=== PATIENT | male | born 1955 | race Caucasian/White ===

== ENCOUNTER 2020-06-21 07:37 | Emergency (ER) | payer MEDICARE, OTHER, SELFPAY ==
[2020-06-21 07:40] VITALS: BP 141/85; PULSE 69; RESP 18; TEMP 36.7; O2SAT 99
[2020-06-21 07:58] LABS: Add Urine Microscopic? NO; Appearance Urine Clear (Clear); Bacteria Urine Trace /hpf; Bilirubin Urine Negative (Negative); Blood Urine Negative (Negative); Color Urine Straw (Yellow); Glucose Urine UA Negative (Negative); Ketones Urine Negative (Negative); Leukocyte Esterase Ur Negative LEU/UL (Negative); Mucus Urine Rare /lpf; Nitrate Urine Negative (Negative); Protein Urine Negative (Negative); Specific Grav Ur 1.012 (1.001-1.035); Urobilinogen Urine Negative mg/dL (<2.0); WBC Urine 0-3 /hpf
--- NOTE | 2020-06-21 08:21 | ED.MALEGU ---
HPI - Male Genitourinary General Chief complaint: Urogenital-Male Stated complaint: diff urinating Time Seen by Provider: 06/21/20 08:01 History of Present Illness HPI Narrative: Patient is a 65-year-old male who presents ER with urinary retention. Has been unable to fully void since about midnight. He takes Flomax twice a day. No fevers or chills or sweats. No dysuria. Has had this previously. Has not started any new medications. Patient had some mild lower abdominal discomfort. Related Data Home Medications Medication Instructions Recorded Confirmed aspirin 81 mg tablet,delayed 81 mg PO DAILY 01/28/20 release latanoprost 0.005 % eye drops 1 drop LEFTEYE QPM ml 01/28/20 qzyuhquc-mucypqaqv-olhpkldd 3.5 1 drop RIGHTEYE .at bedtime ml 01/28/20 mg/mL-10,000 unit/mL-0.1% eye drops tamsulosin 0.4 mg capsule mg PO 01/28/20 01/28/20 timolol maleate 0.5 % eye drops 1 drop LEFTEYE .in the morning ml 01/28/20 Allergies Allergy/AdvReac Type Severity Reaction Status Date / Time No Known Allergies Allergy Verified 06/21/20 07:44 Review of Systems Gastrointestinal: Gastrointestinal: Reports abdominal pain, Denies nausea and Denies vomiting Genitourinary: Genitourinary: Denies hematuria, Reports oliguria and Denies dysuria PMFSH Past Medical History Medical History (Updated 06/21/20 @ 08:24 by Jairo Colby MD) BPH w urinary obs/LUTS Hypertensive heart disease without heart failure Mixed hyperlipidemia Restless legs syndrome Family History Family History (Updated 10/19/18 @ 14:24 by DOCTOR UNKNOWN) Other Family history of coronary artery disease Social History Social History Smoking status: Never smoker Second hand tobacco smoke exposure: No Alcohol intake: never Exam Narrative: Exam Narrative: GENERAL: Well-appearing, well-nourished, and in no acute distress. HEAD: Normocephalic, atraumatic. ABDOMEN: Soft, nontender, nondistended. EXTREMITIES: Normal range of motion. No edema. NEURO: Alert and oriented x3. PSYCH: Normal mood and affect. Course Course Emergency Course: Garza placed by nursing staff. 400 mL has been drained. Discharge with leg bag. Urine clean. Vital Signs Vital signs: Vital Signs Temperature 98.1 F 06/21/20 07:40 Pulse Rate 69 06/21/20 07:40 Respiratory Rate 18 06/21/20 07:40 Blood Pressure 141/85 H 06/21/20 07:40 Pulse Oximetry 99 06/21/20 07:40 Temperature 98.1 F 06/21/20 07:40 Pulse Rate 69 06/21/20 07:40 Respiratory Rate 18 06/21/20 07:40 Blood Pressure 141/85 H 06/21/20 07:40 Pulse Oximetry 99 06/21/20 07:40 MDM - Male Genitourinary Lab Data Labs: Lab Results 06/21/20 Range/Units 07:48 Urine Color Straw (Yellow) Urine Appearance Clear (Clear) Urine pH 6.0 (5.0-9.0) Ur Specific [place] 1.012 (1.001-1.035) Urine Protein Negative (Negative) mg/dL Urine Glucose (UA) Negative (Negative) mg/dL Urine Ketones Negative (Negative) mg/dL Ur Blood (Man) Negative (Negative) Urine Nitrate Negative (Negative) Urine Bilirubin Negative (Negative) Urine Urobilinogen Negative (<2.0) mg/dL Leukocyte Esterase Rfl Negative (Negative) USHA/UL Urine WBC 0-3 /hpf Urine Bacteria Trace /hpf Urine Mucus Rare /lpf Discharge Plan Discharge Clinical Impression: Acute retention of urine Patient Disposition: Home, Self-Care Condition: Stable Instructions: Garza Catheter Placement and Care (ED) Additional Instructions: Contact your urologist and schedule a follow-up appointment to have your Garza removed. Return to the ER if you develop fever over 100.4 ?F, you have lower abdominal pain with a poorly draining catheter, or you have other concerns. Prescriptions: No Action timolol maleate 0.5 % drops 1 drop LEFTEYE .in the morning RF: 0 latanoprost 0.005 % drops 1 drop LEFTEYE QPM RF: 0 neomycin-polymyxin B-dexameth 3.5mg/mL-10,000 unit/mL-
[2020-06-21 08:49] VITALS: BP 161/91; PULSE 84; RESP 13; O2SAT 98
== END 2020-06-21 08:51 | disposition home or self-care (01) ==
LOC: ANHED 08:26
PROVIDERS: Emergency Provider Emergency Medicine; PCP Internal Medicine; Referring Provider Urology
DX: R33.9 Retention of urine, unspecified (principal); I11.0 Hypertensive heart disease with heart failure; I50.9 Heart failure, unspecified; E78.5 Hyperlipidemia, unspecified; G25.81 Restless legs syndrome; N40.1 Benign prostatic hyperplasia with lower urinary tract symptoms; N13.8 Other obstructive and reflux uropathy; Z79.01 Long term (current) use of anticoagulants
CPT/HCPCS: 51702; 81003; 99283

== ENCOUNTER 2020-06-28 03:14 | Emergency (ER) | payer MEDICARE, OTHER, SELFPAY ==
[2020-06-28 03:22] VITALS: BP 150/84; PULSE 66; RESP 16; TEMP 36.5; O2SAT 100
--- NOTE | 2020-06-28 03:48 | ED.ABDPAIN ---
HPI - Abdominal Pain General Chief Complaint: Urogenital-Male Stated Complaint: unable to urinate Time Seen by Provider: 06/28/20 03:33 Source: patient Mode of arrival: ambulatory Limitations: no limitations History of Present Illness HPI narrative: This patient is a 65 year old male with history urinary retention, BPH who presents for evaluation of inability to urinate. Patient was evaluated 1 week ago for urinary retention, and he had a casper catheter placed in the ED. He was discharged home and he states his catheter was removed on Monday. He noticed yesterday evening that his urine stream was slowing down. He developed lower abdominal pain at midnight, and he states he was only able to urinate dribbles. He denies nausea, vomiting or fever. Nursing staff performed a bladder scan and placed a casper catheter before my evaluation. Patient has 600 ml of clear urine output after catheter placement. He states his abdominal pain has resolved. Related Data Home Medications Medication Instructions Recorded Confirmed aspirin 81 mg tablet,delayed 81 mg PO DAILY 01/28/20 release latanoprost 0.005 % eye drops 1 drop LEFTEYE QPM ml 01/28/20 urzskrwi-azwokmoeb-jvzqxxyk 3.5 1 drop RIGHTEYE .at bedtime ml 01/28/20 mg/mL-10,000 unit/mL-0.1% eye drops tamsulosin 0.4 mg capsule mg PO 01/28/20 01/28/20 timolol maleate 0.5 % eye drops 1 drop LEFTEYE .in the morning ml 01/28/20 Allergies Allergy/AdvReac Type Severity Reaction Status Date / Time No Known Allergies Allergy Verified 06/21/20 07:44 Review of Systems Review of Systems: All systems reviewed & are unremarkable except as noted in HPI and below Constitutional: Constitutional: Denies chills and Denies fever(s) Respiratory: Respiratory: Denies cough and Denies dyspnea Gastrointestinal: Gastrointestinal: Reports abdominal pain, Denies nausea and Denies vomiting Genitourinary: Genitourinary: Denies hematuria, Reports oliguria and Denies dysuria [facility] Past Medical History Medical History (Updated 06/28/20 @ 04:13 by Sarah Ang MD) BPH w urinary obs/LUTS Hypertensive heart disease without heart failure Mixed hyperlipidemia Restless legs syndrome Surgical History Surgical History (Updated 06/28/20 @ 03:52 by Sarah Ang MD) Hx of appendectomy Family History Family History (Updated 10/19/18 @ 14:24 by DOCTOR UNKNOWN) Other Family history of coronary artery disease Social History Social History Smoking status: Never smoker Second hand tobacco smoke exposure: No Alcohol intake: never Exam Narrative: Exam Narrative: GENERAL: Well-appearing, well-nourished, and in no acute distress. HEAD: Normocephalic, atraumatic EYES: PERRLA and EOMI, conjunctiva clear without discharge THROAT:Mucous membranes moist, Oropharynx normal without erythema, exudate, peritonsillar swelling or fluctuance NECK: Supple, without lymphadenopathy or mass RESPIRATORY: No respiratory distress, Airway patent, Respirations non-labored, Clear to auscultation without rales, rhonchi or wheeze HEART: Regular rate and rhythm. No murmur heard. Normal peripheral pulses. ABDOMEN: Soft, nontender, nondistended, normal active bowel sounds. No masses. No rebound or guarding, No organomegaly. EXTREMITIES: No edema, normal strength with full range of motion. SKIN: Warm, dry, normal color without rash NEURO: Alert and oriented x3. CN 2-12 grossly intact. No focal deficits. PSYCH: Normal mood and affect. Course Vital Signs Vital signs: Vital Signs Temperature 97.7 F 06/28/20 03:22 Pulse Rate 66 06/28/20 03:22 Respiratory Rate 16 06/28/20 03:22 Blood Pressure 150/84 H 06/28/20 03:22 Pulse Oximetry 100 06/28/20 03:22 Temperature 97.7 F 06/28/20 03:22 Pulse Rate 68 06/28/20 04:37 Respiratory Rate 19 06/28/20 04:37 Blood Pressure 149/75 H 06/28/20 04:37 Pulse Oximetry 99 06/28/20 04:37 MDM - Abdominal [place]
[2020-06-28 04:10] LABS: Add Urine Microscopic? YES; Appearance Urine Clear (Clear); Bilirubin Urine Negative (Negative); Blood Urine 1+ (Negative); Color Urine Straw (Yellow); Glucose Urine UA Negative (Negative); Ketones Urine Negative (Negative); Leukocyte Esterase Ur Negative LEU/UL (Negative); Nitrate Urine Negative (Negative); Protein Urine Negative (Negative); RBC Urine 0-2 /hpf (0-2); Specific Grav Ur 1.008 (1.001-1.035); Urobilinogen Urine Negative mg/dL (<2.0)
[2020-06-28 04:37] VITALS: BP 149/75; PULSE 68; RESP 19; O2SAT 99
== END 2020-06-28 04:48 | disposition home or self-care (01) ==
LOC: ANHED 04:21
PROVIDERS: Emergency Provider General Practice; PCP Internal Medicine
DX: N40.1 Benign prostatic hyperplasia with lower urinary tract symptoms (principal); R33.8 Other retention of urine; I11.9 Hypertensive heart disease without heart failure; E78.2 Mixed hyperlipidemia; G25.81 Restless legs syndrome; Z79.82 Long term (current) use of aspirin
CPT/HCPCS: 51702; 81001; 99283

== ENCOUNTER 2020-10-06 08:37 | Outpatient (CLI) | payer MEDICARE, OTHER, SELFPAY ==
--- NOTE | 2020-10-06 08:40 | ECG_ITS ---
Measurements Intervals [place] Rate: 59 P: 37 GA: 199 QRS: 27 QRSD: 92 T: 38 QT: 386 QTc: 383 Interpretive Statements SINUS BRADYCARDIA EARLY PRECORDIAL R/S TRANSITION BASELINE WANDER- V6 BORDERLINE ECG Electronically Signed On 10-06-2020 13:25:38 [employer] by Arun Henderson D.O.
[2020-10-06 09:37] LABS: INR 0.9; Prothrombin Time 12.6 Seconds (11.1-14.7)
[2020-10-06 09:38] LABS: Partial Thromboplastin Time 27.3 SECONDS (22.3-36.8)
== END 2020-10-06 08:38 | disposition home or self-care (01) ==
PROVIDERS: PCP Internal Medicine; Visit Provider Urology
DX: Z01.818 Encounter for other preprocedural examination (principal); E78.2 Mixed hyperlipidemia; N40.1 Benign prostatic hyperplasia with lower urinary tract symptoms; N13.8 Other obstructive and reflux uropathy
CPT/HCPCS: 36415; 85610; 85730; 87086; 93005

== ENCOUNTER 2020-10-10 02:01 | Outpatient (CLI) | payer MEDICARE, OTHER, SELFPAY ==
[2020-10-10 20:08] LABS: SARS-CoV-2 RNA PCR Negative
== END 2020-10-10 02:02 | disposition home or self-care (01) ==
LOC: ANHCOVIDDT 02:01
PROVIDERS: PCP Internal Medicine; Visit Provider Urology
DX: Z01.812 Encounter for preprocedural laboratory examination (principal); Z20.822 Contact with and (suspected) exposure to COVID-19
CPT/HCPCS: C9803; U0003

== ENCOUNTER 2020-10-13 01:58 | Day surgery (SDC) | payer MEDICARE, OTHER, SELFPAY ==
[2020-09-30 12:55] VITALS: BMI 27.1
--- NOTE | 2020-10-12 10:28 | WPDANESEPPF ---
Anes - Initial Pre Proc Eval Procedure: Operation Date: 10/13/20 08:30 Proposed Procedures p Trans Urethral Resection Prostate - Dani Trevino MD Date/Time: 10/12/20 10:28 Surgeon: Dani Trevino MD Pre Op Diagnosis: BPH Patient Data Age: 65 Gender: M Height: 1.83 m Weight: 90.72 kg Allergies Allergy/AdvReac Type Severity Reaction Status Date / Time No Known Allergies Allergy Verified 10/13/20 06:35 Home Medications Medication Instructions Recorded Confirmed Type aspirin 81 mg tablet,delayed 81 mg PO DAILY 01/28/20 10/13/20 History release latanoprost 0.005 % eye drops 1 drop LEFTEYE QPM ml 01/28/20 10/13/20 History bpjtrmgi-nxvnsifux-tfxjioef 3.5 1 drop RIGHTEYE .at bedtime ml 01/28/20 10/13/20 History mg/mL-10,000 unit/mL-0.1% eye drops tamsulosin 0.4 mg capsule 0.4 mg PO BID 01/28/20 10/13/20 History timolol maleate 0.5 % eye drops 1 drop LEFTEYE .in the morning ml 01/28/20 10/13/20 History finasteride 5 mg tablet 5 mg PO DAILY #90 tablet 06/23/20 10/13/20 Rx pramipexole 0.75 mg tablet 0.75 mg PO .QD #90 tablet 08/25/20 10/13/20 Rx testosterone 2 pump TOPICAL .COMPLEX 90 Days 08/26/20 10/13/20 Rx #450 gm clotrimazole-betamethasone 1 applic TOPICAL PRN PRN 09/30/20 09/30/20 History flaxseed oil 1,000 mg PO DAILY 09/30/20 10/13/20 History odmbs-ka7-kaq-nvq-oj1-xey-astx 1 cap PO DAILY 09/30/20 10/13/20 History [Krill Oil ([place] 3 and 6)] metoprolol succinate 50 mg PO HS 09/30/20 10/13/20 History xmrcfxej-ltd-MJ-lycopen-lutein 1 tablet PO DAILY 09/30/20 10/13/20 History [Centrum Silver Men] simvastatin 20 mg PO HS 09/30/20 10/13/20 History Patient hx anesthesia problems: none Family hx anesthesia problems: none PMFSH Past Medical History Medical History (Updated 10/12/20 @ 10:28 by Lonnie Elliott DO) BPH w urinary obs/LUTS Hypertensive heart disease without heart failure Liver mass, right lobe cyst Mixed hyperlipidemia Restless legs syndrome Surgical History Surgical History (Updated 06/28/20 @ 03:52 by Sarah Ang MD) Hx of appendectomy Family History Family History (Updated 10/19/18 @ 14:24 by DOCTOR UNKNOWN) Other Family history of coronary artery disease Social History Social History Smoking status: Never smoker Second hand tobacco smoke exposure: No Alcohol intake: never Drinks per week: 3 Living arrangements: with family Spiritual care concerns: No Anes - Eval Final PreProcedure Day of Procedure 10/12/20 10:28 Patient weight: overweight Heart: regular rate and rhythm Lungs: clear to auscultation and normal air movement Airway: Mallampati scale class II Neurological: alert and oriented Last oral intake: >/= 8 hours ASA classification: III Emergent: no Anesthetic plan: proceed Anesthesia type and monitoring: general LMA and standard monitoring Informed Consent: The patient's anesthetic plan and its attendant risks and benefits were discussed with the patient/family/POA. Questions were solicited and answers provided to the satisfaction of the patient/family/POA.
[2020-10-13] VITALS (14 sets, daily range): BP systolic 121–161; BP diastolic 67–86; PULSE 51–88; RESP 9–20; TEMP 35.9–36.5; O2SAT 97–100; BMI 26.2
[2020-10-13] MEDS: LACTATED RINGERS 1,000 ML 30 ML IV CONT ×2 (07:10→09:43)
--- NOTE | 2020-10-13 07:28 | WPDHPUPDATE1 ---
History and Physical Update Update Date/Time: 10/13/20 07:28 History and Physical has been reviewed, including an updated exam of the patient. There are NO changes in the patient's condition. Risks, benefits, and alternatives have been discussed and questions answered. Patient agrees to proceed with procedure.
[2020-10-13] MEDS: ceFAZolin 2 GM/D5W 50 ML 2 GM/50 ML BAG IVPB (08:35)
[2020-10-13] MEDS: LIDOCAINE HCL 2% GEL UROJET 10 ML PKG MUCOUS MEM (08:52)
--- NOTE | 2020-10-13 09:39 | P.OP_ITS ---
Procedure Note - Detailed Date of procedure: 10/13/20 Pre-op diagnosis: BPH Post-op diagnosis: same Procedure performed: Transurethral resection of prostate Description of procedure: Patient is taken to the operative suite and correctly identified. Once anesthesia was obtained he was placed in dorsal lithotomy position and prepped and draped usual sterile fashion. Twenty-four Danish resectoscope was inserted. There are no bladder tumors noted both ureteral orifices normal anatomic position. The prostate had some lateral lobe hypertrophy but most of it was a median lobe as well as some protrusion of the lateral lobes into the bladder. We went ahead and resected the lateral lobes from the bladder neck to the verumontanum. This was then circumferentially. The median lobe was also taken down. Chips were then sent for analysis. We used fulguration with the rollerball to get hemostasis. All trips were retrieved. 2% viscous lidocaine was then inserted into the urethra. Twenty- four Danish 3 way was placed with 20 cc in the balloon. This was connected to continuous bladder irrigation. Anesthesia: GLMA Surgeon: Dani Trevino MD Estimated blood loss (mL): 50 Drains: Yes Packing: No Pathology: yes Complications: No immediate complications Condition: stable Disposition: PACU
--- NOTE | 2020-10-13 11:09 | ADMGEN ---
This patient, Dave Spicer, was admitted to -. Patient/family oriented to hospital policies and general routines including ID bracelet, bed and alarms, visiting hours, pain management, procedures, bathroom and other care routines, personal items, smoking policy, room service/diet, and visiting hours. Information on how to activate the Rapid Response Team has been discussed. Patient/Family are encouraged to report perceived risks to care and to ask questions if they do not understand what they are told or what they should do.
[2020-10-13] MEDS: DEXTROSE 5%/LACTATED RINGERS 1,000 ML 125 ML IV CONT ×2 (12:00→12:23)
[2020-10-13] MEDS: HYOSCYAMINE SULFATE 0.125 MG TABLET SUBLINGUAL (12:23)
[2020-10-13] MEDS: DOCUSATE SODIUM 100 MG CAPSULE PO (18:05)
[2020-10-13] MEDS: SIMVASTATIN 20 MG TABLET PO (20:57)
[2020-10-13] MEDS: LATANOPROST 0.005% OP SOLN 2.5 ML BTL 1 DROP EACH EYE (20:57)
[2020-10-13] MEDS: NEOMYCIN/POLYMYXIN/DEXAMETH OP SUSP 5 ML BTL 1 DROP RIGHT EYE (20:57)
[2020-10-13] MEDS: METOPROLOL SUCCINATE EXT REL 50 MG TABCR PO (20:57)
[2020-10-13] MEDS: diphenhydrAMINE HCl CAP 25 MG CAPSULE PO (23:44)
[2020-10-14 01:14] VITALS: BP 116/64; PULSE 60; RESP 16; TEMP 36.3; O2SAT 97
[2020-10-14 05:33] VITALS: BP 125/67; PULSE 60; RESP 16; TEMP 36.4; O2SAT 97
[2020-10-14 05:52] LABS: Hematocrit 41.8 % (42.0-52.0)
[2020-10-14 06:19] LABS: Anion Gap 2 mmol/L (8-16); Blood Urea Nitrogen 19 mg/dL (9-20); Calcium 9.4 mg/dL (8.4-10.2); Carbon Dioxide 31 mmol/L (22-30); Chloride 105 mmol/L (98-107); Estimated CRCL calculation 70 ml/min; Estimated Glomerular Filt Rate > 60; Glucose 99 mg/dL (75-110); Sodium 138 mmol/L (137-145)
[2020-10-14] MEDS: CEPHALEXIN 500 MG CAPSULE PO ×2 (08:23→12:31)
[2020-10-14] MEDS: TIMOLOL MALEATE 0.5% OP SOLN 5 ML BOTTLE 1 DROP EACH EYE (08:23)
[2020-10-14] MEDS: DOCUSATE SODIUM 100 MG CAPSULE PO (08:23)
--- NOTE | 2020-10-14 08:58 | WPDANESPN ---
Anes - Prog Note Post-Op Date/Time: 10/14/20 08:58 Cardiovascular status: normal Respiratory status: normal Airway patency: baseline Mental status: baseline Post-Op hydration status: normal Vital Signs: Last Vital Signs Temp 36.4 C 10/14/20 05:33 Pulse 60 10/14/20 05:33 Resp 16 10/14/20 05:33 BP 125/67 10/14/20 05:33 Pulse Ox 97 10/14/20 05:33 Pain Score (VAS): 10/18 I/O: Intake & Output 10/13/20 10/14/20 10/14/20 23:59 07:59 15:59 Intake Total 840 300 240 Output Total 3350 Balance -2510 300 240 Laboratory Tests 10/14/20 05:32 10/14/20 05:32 10/14/20 10/14/20 05:32 05:32 Hgb 14.0 Hct 41.8 L Sodium 138 Potassium 4.0 Chloride 105 Carbon Dioxide 31 H Anion Gap 2 L BUN 19 Creatinine 1.00 Estim Creat Clear Calc 70 Estimated GFR > 60 Glucose 99 Calcium 9.4 Patient Feedback: Patient satisfied with anesthetic care.
--- NOTE | 2020-10-14 09:48 | WPDUROPN2 ---
Progress Note: A&P Assessment and Plan (1) BPH w urinary obs/LUTS: Code(s): N40.1 - Benign prostatic hyperplasia with lower urinary tract symptoms; N13.8 - Other obstructive and reflux uropathy Status: Acute Assessment and Plan: Encourage more activity, to ensure bleeding will not start with CBI off. Will re-assess this afternoon, if urine is clear with plan to discharge home with casper. If bloody, will restart CBI and keep overnight to re-assess tomorrow, will then need to wean CBI to off when clear. Creatinine is 1.00. Subjective Subjective Date/Time Seen: 10/14/20 09:48 POD #1 TURP Urine is clear on slow CBI, CBI was turned off during exam this morning. Patient is doing well, no c/o pain or bleeding. Review of Systems Respiratory: Respiratory: Reports no additional respiratory complaints Gastrointestinal: Gastrointestinal: Denies abdominal pain Genitourinary: Genitourinary: Denies hematuria and Denies flank pain Exam Resp: Effort & Inspection: normal respiratory effort Cardio: Rate: regular rate GI: GI Palp: No abdominal tenderness, Yes Soft to palpation and No Tenderness to palpation present (GI) : General: Yes no CVA tenderness Urinary Catheter: Urinary Catheter: patent and draining and urine clear Extrem: General: no edema Objective Data Vital Signs Vital Signs: Vital Signs - 24 hr 10/13/20 10:00 10/13/20 10:05 10/13/20 10:15 Temperature Pulse Rate 58 L 61 56 L Respiratory Rate 14 16 14 Blood Pressure 123/84 142/86 H Pulse Oximetry 100 99 10/13/20 10:30 10/13/20 10:45 10/13/20 11:00 Temperature Pulse Rate 59 L 58 L 88 Respiratory Rate 18 14 20 Blood Pressure 142/86 H 139/84 161/72 H Pulse Oximetry 98 99 97 10/13/20 11:25 10/13/20 11:50 10/13/20 15:48 Temperature 96.6 F L 96.7 F L 97.4 F L Pulse Rate 51 L 52 L 79 Respiratory Rate 18 18 20 Blood Pressure 140/67 145/81 H 125/72 Pulse Oximetry 100 100 99 10/13/20 20:00 10/13/20 20:57 10/13/20 22:14 Temperature 97.6 F Pulse Rate 74 74 73 Respiratory Rate 20 18 Blood Pressure 129/76 Pulse Oximetry 99 100 10/14/20 01:14 10/14/20 05:33 Temperature 97.4 F L 97.6 F Pulse Rate 60 60 Respiratory Rate 16 16 Blood Pressure 116/64 125/67 Pulse Oximetry 97 97 Intake/Output Intake/Output: Intake & Output 10/11/20 10/12/20 10/13/20 10/14/20 23:59 23:59 23:59 23:59 Intake Total 1620 540 Output Total 7350 Balance -5730 540 Meds/Results Medications: Active Medications Generic Name Dose Route Start Last Admin Trade Name Freq PRN Reason Stop Dose Admin Hydrocodone Bitart/Acetaminophen 1 tab 10/13/20 10:03 Hydrocodone/Acetaminophen (*Crx) 5-325 Mg Tablet PO Q4H PRN Pain Rated 1-6 Cephalexin HCl 500 mg 10/14/20 09:00 10/14/20 08:23 Cephalexin 500 Mg Capsule PO 500 mg QID ARGENIS Administration Docusate Sodium 100 mg 10/13/20 17:00 10/14/20 08:23 Docusate Sodium 100 Mg Capsule PO 100 mg BID ARGENIS Administration Hyoscyamine 0.125 mg 10/13/20 10:03 10/13/20 12:23 Hyoscyamine Sulfate 0.125 Mg Tablet SUBLINGUAL 0.125 mg Q6H PRN Administration Bladder Spasm Latanoprost 1 drop 10/13/20 21:00 10/13/20 20:57 Latanoprost 0.005% Op Soln 2.5 Ml Btl EACH EYE 1 drop HS ARGENIS Administration Metoprolol Succinate 50 mg 10/13/20 21:00 10/13/20 20:57 Metoprolol Succinate Ext Rel 50 Mg Tabcr PO 50 mg HS ARGENIS Administration Morphine Sulfate 2 mg 10/13/20 10:03 Morphine Sulfate (*Crx) 2 Mg/Ml Inj IV PUSH Q2H PRN Pain Rated 7-10 Naloxone HCl 0.1 mg 10/13/20 10:03 Naloxone Hcl 0.4 Mg/Ml Vial IV PUSH Q2M PRN Opiate Reversal Naloxone HCl 0.1 mg 10/13/20 11:05 Naloxone Hcl 0.4 Mg/Ml Vial IV PUSH Q2M PRN Opiate Reversal Neomycin/Polymyxin/Dexamethasone 1 drop 10/13/20 21:00 10/13/20 20:57 Neomycin/Polymyxin/Dexameth Op Susp 5 Ml Btl RIGHT EYE 1 drop HS ARGENIS Administratio
--- NOTE | 2020-10-14 10:44 | PC.NURSE ---
Urine in casper bag remains clear yellow with small periods of darker pink noted after walking in hallway. No dark blood noted. No clots noted.
[2020-10-14 11:48] VITALS: BP 136/68; PULSE 104; RESP 20; TEMP 36.2; O2SAT 100
--- NOTE | 2020-10-14 15:44 | PM.DS ---
DS: Admitting Diagnosis Admitting Diagnosis Admitting Diagnosis: BPH DS: Summary Hospital Course Hospital Course: POD #1 TURP Time Spent with Patient Time attestation: Pre-Op Diagnosis: BPH with LUTS Post -OP Diagnosis: BPH Patient underwent a TURP on 10/13/[address] Cuco Trevino and tolerated the procedure well. He was transferred to recovery in stable condition and to the floor for further observation overnight. He was on CBI overnight and into this morning, urine remained clear and CBI was turned off around 9am. After activity today with CBI off, urine has remained clear and no bleeding noted. He will be discharged home and should resume all home medications, excluding vitamins, ASA and NSAID's. They can be resumed on Monday. He will also go home with Levsin for bladder spasms, Ultram for pain and Bactrim to prevent infection. He can resume a diet as tolerated and activity no straining. He will follow up Monday10/16/2020 at 10am for casper removal. Exam Resp: Effort & Inspection: normal respiratory effort Cardio: Rate: regular rate GI: GI Palp: Yes Soft to palpation and No Tenderness to palpation present (GI) : General: Yes no CVA tenderness Urinary Catheter: Urinary Catheter: patent and draining, urine clear and urine dark Extrem: General: no edema DS: Data Data Completed and Pending Completed studies during hospitalization: Pending at discharge 10/13/20 09:31 Surgical [PTH] Routine Labs on day of discharge: Labs from last 24 hours 10/14/20 10/14/20 05:32 05:32 Hgb 14.0 Hct 41.8 L Sodium 138 Potassium 4.0 Chloride 105 Carbon Dioxide 31 H Anion Gap 2 L BUN 19 Creatinine 1.00 Estim Creat Clear Calc 70 Estimated GFR > 60 Glucose 99 Calcium 9.4 Discharge Plan Discharge Patient Disposition: Home, Self-Care Discharge Instructions: Ok to discharge home with casper catheter. Patient will follow up Monday10/16/2019 at 10am to have casper removed in the office. Call the office if you develop a fever of >102, heavy bleeding or clots. Patient Instructions: Continuous Bladder Irrigation (GEN), Transurethral Resection of Bladder Tumors (DC) Stand Alone Forms: Avoid NSAIDs Follow-up/Referrals: Dani Trevino MD [Physician] - Discharge Medications: New sulfamethoxazole-trimethoprim [Bactrim DS] 800-160 mg tablet 1 tablet PO DAILY Qty: 3 RF: 0 tramadol [Ultram] 50 mg tablet 50 mg PO Q6H PRN (Reason: pain) Qty: 10 RF: 0 hyoscyamine sulfate [Levsin/SL] 0.125 mg tablet, sublingual 0.125 mg sublingual QID Qty: 20 RF: 0 Continued timolol maleate 0.5 % drops 1 drop LEFTEYE .in the morning RF: 0 latanoprost 0.005 % drops 1 drop LEFTEYE QPM RF: 0 neomycin-polymyxin B-dexameth 3.5mg/mL-10,000 unit/mL-0.1 % drops,suspension 1 drop RIGHTEYE .at bedtime RF: 0 tamsulosin 0.4 mg capsule 0.4 mg PO BID RF: 0 metoprolol succinate 50 mg tablet extended release 24 hr 50 mg PO HS RF: 0 clotrimazole-betamethasone 1-0.05 % cream 1 applic TOPICAL PRN PRN (Reason: Itching) RF: 0 simvastatin 20 mg tablet 20 mg PO HS RF: 0 pramipexole 0.75 mg tablet 0.75 mg PO HS RF: 0 finasteride 5 mg tablet 5 mg PO DAILY Qty: 90 RF: 1 testosterone 12.5 mg/ 1.25 gram (1 %) gel in metered-dose pump 2 pump topical .COMPLEX 90 Days Qty: 450 RF: 1 Held aspirin [Adult Aspirin Regimen] 81 mg tablet,delayed release (DR/EC) 81 mg PO DAILY RF: 0 Hold Instructions: Resume on 10/19/20. flaxseed oil 1,000 mg Capsule 1,000 mg PO DAILY RF: 0 Hold Instructions: Resume on 10/19/20. Krill Oil ([place] 3 and 6) 1,500-165-67.5 mg Capsule 1 cap PO DAILY RF: 0 Hold Instructions: Resume on 10/19/20. Centrum Silver Men 300-600-300 mcg Tablet 1 tablet PO DAILY RF: 0 Hold Instructions: Resume on 10/19/20.
--- NOTE | 2020-10-14 16:00 | PC.NURSE ---
Orders to d/c CBI and place casper catheter to leg bag for discharge home. Patient has ambulated in hallway 5-6 times with pink urine - no clots. Patient has tolerated CBI being paused all day today. No c/o pain or discomfort. No issues with flow of urine in catheter today. Patient states he has had a leg bag and catheter at home previously and is familiar with how to care for the catheter and how to empty the bag. Reviewed catheter care with patient and how to switch from leg bag to larger gravity drainage bag at bedtime. Patient verbalized understanding of all instructions. Sent patient home with catheter plug, drainage bag and graduate for emptying leg bag and catheter.
== END 2020-10-14 16:20 | disposition home or self-care (01) ==
LOC: ANHSURGERY 06:23 → ANH2MED 11:16
PROVIDERS: PCP Internal Medicine; Visit Provider Urology
PROC: 0VT08ZZ Resection of Prostate, Via Natural or Artificial Opening Endoscopic (ICD-10-PCS; CPT 52601; principal; 2020-10-13 08:30)
DX: N40.1 Benign prostatic hyperplasia with lower urinary tract symptoms (principal); R33.8 Other retention of urine; I11.9 Hypertensive heart disease without heart failure; E78.2 Mixed hyperlipidemia; G25.81 Restless legs syndrome; K76.89 Other specified diseases of liver
CPT/HCPCS: 52601; 36415; 80048; 85014; 85018; 88305; A9270; J0690; J1100; J2405; J2704; J3010; J7120; J7121

== ENCOUNTER 2021-03-22 08:44 | Outpatient (CLI) | payer MEDICARE, OTHER, SELFPAY ==
--- NOTE | 2021-03-22 08:48 | EST_ITS ---
Patient Info Name: Dave Spicer Age: 66 years : 1955 Gender: Male Ht: 72 in Wt: 200 lbs BSA: 2.16 m2 HR: 51 bpm BP: 136 / 88 mmHg Heart Rhythm: Sinus Rhythm Exam Date: 03/22/2021 9:27 AM Exam Location: [facility] Patient Status: Outpatient Admit Date: 03/22/2021 Staff Ordering Physician: Tamica Ahuja DO Indian Blanket Weaver: Veronica Burnett RDCS Attending Provider: ARUN GLASER DO Exercise Technologist: Justina Delgado RDCS Exercise Physician: Arun Glaser DO Exam Type: CA stress echo Study Info Indications R07.9 - Chest pain, unspecified Treadmill exercise stress echocardiogram is performed. Summary 1. 1. Negative Ed exercise stress test for ischemic ST changes by ECG criteria. 2. 2. Good functional capacity, achieving 11 METs of workload. 3. 3. Appropriate HR response to exercise. 4. 4. Appropriate HR recovery at 1 minute post exercise. 5. 5. Hypertensive response to exercise. 6. 6. Negative stress echocardiogram for ischemia by wall motion analysis. 7. 7. Patient informed of the above results. Stress Echo Findings Left Ventricle Appropriate increase in LV endocardial thickening with systole. Appropriate augmentation of contractility with systole. No wall motion abnormality. Left Ventricle Normal LV systolic function, no wall motion abnormality. Protocol: Ed Stress ECG Details Stage: REST Duration (min): 0 min : 55 sec Speed (mph): 0.0 Grade (%): 0 HR (bpm): 53 SBP (mmHg): 136 DBP (mmHg): 88 METS: --- Stage: REST Duration (min): 14 min : 57 sec Speed (mph): 0.0 Grade (%): 0 HR (bpm): 53 SBP (mmHg): 136 DBP (mmHg): 88 METS: --- Stage: STAGE 1 Duration (min): 1 min : 0 sec Speed (mph): 1.7 Grade (%): 10 HR (bpm): 71 SBP (mmHg): 136 DBP (mmHg): 88 METS: --- Stage: STAGE 1 Duration (min): 2 min : 0 sec Speed (mph): 1.7 Grade (%): 10 HR (bpm): 75 SBP (mmHg): 136 DBP (mmHg): 88 METS: --- Stage: STAGE 1 Duration (min): 3 min : 0 sec Speed (mph): 1.7 Grade (%): 10 HR (bpm): 78 SBP (mmHg): 158 DBP (mmHg): 91 METS: --- Stage: STAGE 2 Duration (min): 1 min : 0 sec Speed (mph): 2.5 Grade (%): 12 HR (bpm): 87 SBP (mmHg): 158 DBP (mmHg): 91 METS: --- Stage: STAGE 2 Duration (min): 2 min : 0 sec Speed (mph): 2.5 Grade (%): 12 HR (bpm): 92 SBP (mmHg): 158 DBP (mmHg): 91 METS: --- Stage: STAGE 2 Duration (min): 3 min : 0 sec Speed (mph): 2.5 Grade (%): 12 HR (bpm): 97 SBP (mmHg): 171 DBP (mmHg): 85 METS: --- Stage: STAGE 3 Duration (min): 1 min : 0 sec Speed (mph): 3.4 Grade (%): 14 HR (bpm): 111 SBP (mmHg): 169 DBP (mmHg): 104 METS: --- Stage: STAGE 3 Duration (min): 2 min : 0 sec Speed (mph): 3.4 Grade (%): 14 HR (bpm): 124 SBP (mmHg): 169 DBP (mmHg): 104 METS: --- Stage: STAGE 3
== END 2021-03-22 08:45 | disposition home or self-care (01) ==
PROVIDERS: PCP Family Medicine; Visit Provider Family Medicine
DX: R07.9 Chest pain, unspecified (principal)
CPT/HCPCS: 93351

== ENCOUNTER 2021-03-23 07:59 | Outpatient (CLI) | payer MEDICARE, OTHER, SELFPAY ==
--- NOTE | ~2021-03-23 | XR_ITS ---
XR shoulder RT min 2V 03/23/2021 08:28 Indication: Right shoulder pain. No acute injury. Procedure: 4 views right shoulder Comparison: No prior studies for comparison. Findings: There is mild polyarticular osteoarthritis of the shoulder including the acromioclavicular and glenohumeral joints. No fracture or traumatic malalignment. No soft tissue abnormality. No foreig n bodies. Impression: 1: Mild polyarticular osteoarthritis of the right shoulder. Reviewed, dictated and finalized at location A. Impression: 1: Mild polyarticular osteoarthritis of the right shoulder.
--- NOTE | ~2021-03-23 | XR_ITS ---
EXAMINATION: XR_CERV2-3V_CR EXAM DATE: 03/23/2021 08:27 INDICATION: Right shoulder and arm pain. No known recent injury. TECHNIQUE: Cervical spine frontal, lateral, lateral swimmers, and open-mouth odontoid projections. There is no prior study for comparison. FINDINGS: There is moderate loss of the C6-7 disc height. The vertebral body and disc heights are ot herwise well maintained. The vertebral bodies are aligned in the AP dimension. Moderate right-sided c ervical arthropathy at C3-4, probably mild to moderate at the other cervical levels. Mild to moderate lower cervical uncovertebral joint arthropathy. The odontoid process is intact. The lateral masses of C1 line up with C2. Prevertebral soft tissue and pre-dens space are within normal limits. Lung api kai unremarkable. IMPRESSION: Up to moderate cervical spondylosis. Reviewed, dictated and finalized at location B.
== END 2021-03-23 08:00 | disposition home or self-care (01) ==
PROVIDERS: PCP Family Medicine; Visit Provider Family Medicine
DX: M47.812 Spondylosis without myelopathy or radiculopathy, cervical region (principal); M19.011 Primary osteoarthritis, right shoulder
CPT/HCPCS: 72040; 73030

== ENCOUNTER 2021-11-14 17:57 | Emergency (ER) | payer MEDICARE, OTHER, SELFPAY ==
--- NOTE | ~2021-11-14 | XR_ITS ---
EXAMINATION: XR foot LT min 3V EXAM DATE: 11/14/2021 18:21 INDICATION: left foot pain after shoveling snow today. Pain on top of proximal and middle of foot raya nly upon weight bearing TECHNIQUE: Left foot dorsoplantar, lateral and oblique projections obtained and reviewed. There is n o prior study for comparison. FINDINGS: Left metatarsal bones unremarkable. Small calcaneal spur inferiorly. There is mild 1st M TP primary osteoarthritis. There are no acute fractures or dislocations identified. There is no subc utaneous gas. The soft tissue is unremarkable. There are no radiopaque foreign bodies. IMPRESSION: No acute osseous findings. Reviewed, dictated and finalized at location G. NISTRATIVE UNDERWRITER IMPRESSION: No acute osseous findings.
--- NOTE | 2021-11-14 18:01 | ED.GENADULT ---
HPI - General Adult General Chief complaint: Extremity Injury, Lower Stated complaint: lt foot pain Time Seen by Provider: 11/14/21 18:00 Source: patient Mode of arrival: ambulatory Limitations: no limitations History of Present Illness HPI narrative: 66-year-old male patient presents to the [facility] with complaints of left foot pain that started today. Patient states he was shoveling snow today and he went to go and take off of his shoes and the top portion of his foot started hurting. Patient states pain increases when putting pressure on the left foot. Denies taking anything for pain today. Denies any numbness or tingling to the toes. Related Data Home Medications Medication Instructions Recorded Confirmed aspirin 81 mg tablet,delayed 81 mg PO DAILY 01/28/20 11/14/21 release latanoprost 0.005 % eye drops 1 drop LEFTEYE QPM ml 01/28/20 11/14/21 Centrum Silver Men 1 tablet PO DAILY 09/30/20 11/14/21 Krill Oil ([place] 3 and 6) 1 cap PO DAILY 09/30/20 11/14/21 flaxseed oil 1,000 mg PO DAILY 09/30/20 11/14/21 triamcinolone acetonide 1 applic TOPICAL DIRECTED 11/14/21 11/14/21 Allergies Allergy/AdvReac Type Severity Reaction Status Date / Time No Known Allergies Allergy Verified 11/14/21 18:12 Review of Systems Review of Systems: CONSTITUTIONAL: Denies fever, chills, or sweats. EYES: Denies visual changes, redness, or discharge. ENT: Denies rhinorrhea, congestion, sore throat, or otalgia. CARDIOVASCULAR: Denies chest pain, palpitations, or edema. RESPIRATORY: Denies cough or dyspnea. GASTROINTESTINAL: Denies abdominal pain, nausea, vomiting, or diarrhea. GENITOURINARY: Denies dysuria or hematuria. SKIN: Denies rash or itching. MUSCULOSKELETAL: Denies back pain, joint pain, or myalgia. Positive left foot pain NEUROLOGIC: Denies headache, numbness, or weakness. PSYCHIATRIC: Denies anxiety or depression. [facility] Past Medical History Medical History BPH w urinary obs/LUTS Hypertensive heart disease without heart failure Liver mass, right lobe cyst Mixed hyperlipidemia Restless legs syndrome Surgical History Surgical History Hx of appendectomy S/P TURP Family History Family History Other Family history of coronary artery disease Social History Social History Smoking status: Never smoker Second hand tobacco smoke exposure: No Alcohol intake: never Drinks per week: 3 Substance use: never Substance use type: does not use Gender identity (if verbalized by the patient): Male Spiritual care concerns: No Agree to blood products: Yes Comments At the time of my signature I agree with nursing past medical history, surgical, social, and family history. There is no relevant family history pertinent to the presenting complaint. Exam Narrative: GENERAL: Well-appearing, well-nourished, and in no acute distress. HEAD: Normocephalic, atraumatic. EYES: PERRLA and EOMI. ENT: Nares clear, no rhinorrhea or epistaxis. Mucous membranes moist. NECK: Supple. No lymphadenopathy CHEST: Clear to auscultation. No respiratory distress. HEART: Regular rate and rhythm. No murmur heard. Normal peripheral pulses. ABDOMEN: Soft, nontender, nondistended, normal active bowel sounds. EXTREMITIES: Patient able to bear weight and ambulate with pain. Patient arrives using crutches. No obvious surface trauma, ecchymosis, erythema, lesions, ulcers or break in skin integrity. The L foot is without obvious asymmetry or deformity when compared to the R foot. No bony step-off, nontender to palpation over the toes, tenderness over the left midfoot and sole. Pain with plantar/dorsiflexion, no pain with inversion/eversion. Distal motor and neurovascular status are intact SKIN: Warm, dry, no rash. NEURO: No focal
[2021-11-14 18:08] VITALS: BP 141/68; PULSE 89; RESP 18; TEMP 36.4; O2SAT 100
== END 2021-11-14 18:36 | disposition home or self-care (01) ==
PROVIDERS: Emergency Provider Nurse Practitioner Family; PCP Internal Medicine
DX: M77.32 Calcaneal spur, left foot (principal); M72.2 Plantar fascial fibromatosis; E78.2 Mixed hyperlipidemia; G25.81 Restless legs syndrome; I11.9 Hypertensive heart disease without heart failure; N40.1 Benign prostatic hyperplasia with lower urinary tract symptoms
CPT/HCPCS: 73630; 99213; G0463

== ENCOUNTER 2022-05-16 10:28 | Emergency (ER) | payer MEDICARE, OTHER, SELFPAY ==
--- NOTE | ~2022-05-16 | XR_ITS ---
EXAMINATION: XR abdomen/kub 1V DATE: 05/16/2022 11:48 INDICATION: Abdominal pain. TECHNIQUE: A supine view of the abdomen on 2 radiographs was obtained. COMPARISON: CT pelvis 10/31/2018 FINDINGS: There are no dilated loops of bowel. The descending colon is featureless with loss of the n ormal haustra. There is a benign bone island in right ilium. IMPRESSION: 1. Featureless descending colon, which may be seen with acute or chronic colitis. Reviewed, dictated and finalized at location A. IMPRESSION: 1. Featureless descending colon, which may be seen with acute or chronic coliti s.
[2022-05-16 10:43] VITALS: BP 137/76; PULSE 63; RESP 18; TEMP 36.6; O2SAT 98
--- NOTE | 2022-05-16 11:08 | ED.ABDPAIN ---
HPI - Abdominal Pain General Chief Complaint: Abdominal Pain Stated Complaint: Abdominal Pain Source: patient Mode of arrival: ambulatory Limitations: no limitations History of Present Illness HPI narrative: 67-year-old male presents to [facility] with complaints of lower abdominal pain for the past 2 to 3 weeks. Patient reports that he called his primary care provider today for an appointment but they cannot get him in for an appointment for 1 week. Patient reports that he has been increasing his fiber in his diet and had 2 normal bowel movements today. Patient does night sweats, unexplained weight loss, nausea, vomiting or diarrhea. Patient has had history of hernia repair in the past. Patient denies fever, body aches, chills, blood or mucus in his stools Onset (ago): week(s) (2-3) Location: [facility] Exacerbating factors: nothing Related Data Home Medications Medication Instructions Recorded Confirmed aspirin 81 mg tablet,delayed 81 mg PO DAILY 01/28/20 05/16/22 release (Adult Aspirin Regimen) latanoprost 0.005 % eye drops 1 drop LEFT EYE QPM 01/28/20 05/16/22 flaxseed oil 1,000 mg capsule 1,000 mg PO DAILY 09/30/20 05/16/22 krill 1 cap PO DAILY 09/30/20 05/16/22 dlz-jn7-ywl-anv-cg7-rgv-astax 1,500 mg-165 mg-67.5 mg capsule (Krill Oil ([place] 3 and 6)) oecqmgbe-ngw-zzznb acid 300 1 tablet PO DAILY 09/30/20 05/16/22 mcg-lycopene 600 mcg-lutein 300 mcg tablet (Centrum Silver Men) triamcinolone acetonide 0.1 % 1 applic topical DIRECTED 11/14/21 05/16/22 topical ointment Allergies Allergy/AdvReac Type Severity Reaction Status Date / Time No Known Allergies Allergy Verified 05/16/22 10:29 Review of Systems Constitutional: Constitutional: Denies chills, Denies fatigue, Denies fever(s) and Denies weakness ENT: Denies dysphagia, Denies vertigo and Denies dizziness Cardiovascular: Cardiovascular: Denies chest pain and Denies rapid heart rate Respiratory: Respiratory: Denies cough Gastrointestinal: Gastrointestinal: Reports abdominal pain, Denies bloating, Denies constipation and Denies heartburn Genitourinary: Genitourinary: Denies hematuria, Denies dysuria and Denies penile discharge Musculoskeletal: Musculoskeletal: Denies arthralgias and Denies joint swelling Integumentary/Breasts: Skin/Breast: Denies rash PMFSH Past Medical History Medical History BPH w urinary obs/LUTS Hypertensive heart disease without heart failure Liver mass, right lobe cyst Mixed hyperlipidemia Restless legs syndrome Surgical History Surgical History Hx of appendectomy S/P TURP Family History Family History Other Family history of coronary artery disease Social History Social History Smoking status: Never smoker Second hand tobacco smoke exposure: No Alcohol intake: never Drinks per week: 3 Substance use: never Substance use type: does not use Gender identity (if verbalized by the patient): Male Spiritual care concerns: No Agree to blood products: Yes Comments At time of signature, I agree with nursing past medical, surgical, social and family history. There is no relevant family history pertinent to the presenting complaint. Exam Const: General: healthy appearing Nutritional Appearance: well nourished Orientation/consciousness: patient oriented x3 Limitations: no limitations Neck: Neck: normal visual inspection Resp: Effort & Inspection: normal respiratory effort and not labored Auscultation: clear to auscultation bilaterally, no crackles, no rales, no rhonchi and no wheezes Cardio: Rate: regular rate and not bradycardic Rhythm: regular rhythm and regular rhythm Heart sounds: no murmurs GI: GI Palp: Yes Soft to palpation, Yes Tenderness to palpation p
== END 2022-05-16 12:24 | disposition short-term general hospital (02) ==
PROVIDERS: Emergency Provider Nurse Practitioner Family; PCP Internal Medicine
DX: R10.31 Right lower quadrant pain (principal); R10.32 Left lower quadrant pain; I11.0 Hypertensive heart disease with heart failure; I50.9 Heart failure, unspecified; E78.2 Mixed hyperlipidemia; G25.81 Restless legs syndrome; N40.1 Benign prostatic hyperplasia with lower urinary tract symptoms; Z79.82 Long term (current) use of aspirin
CPT/HCPCS: 74018; 81003; 99213; G0463

== ENCOUNTER 2022-05-16 12:43 | Emergency (ER) | payer MEDICARE, OTHER, SELFPAY ==
--- NOTE | ~2022-05-16 | CT_ITS ---
EXAMINATION: CT abdomen pelvis w con DATE: 05/16/2022 15:09 INDICATION: TECHNIQUE: Computed tomography (CT) of the abdomen and pelvis was performed with 100 cc Omnipaque 350 intravenous contrast. The dose-length product was 645.95 mGy-cm. Automated exposure control and iter ative reconstruction technique were employed. COMPARISON: MRI dated 07/25/2017. FINDINGS: Lung bases are unremarkable. No significant pleural or pericardial effusion. Heart size nor mal. There is a large hemangioma of the right hepatic lobe measuring 10.4 x 7.6 x 9.9 cm, not signifi cantly changed from prior examination allowing for differences of technique. The spleen, pancreas, ad renal glands and left kidney are unremarkable. Large septated right renal cyst. There is a low-densit y right adrenal mass measuring 1.6 cm, likely benign adenoma. Gallbladder is present. No significant vascular abnormality. Retroaortic left renal vein. Nonobstructive bowel gas pattern. No free air or f ree fluid. Nonobstructive bowel pattern. No abnormal pelvic masses or fluid collections. IMPRESSION: 1. Large peripherally enhancing right hepatic lobe mass, compatible with hemangioma. No significant c hange from prior examination allowing for differences of technique. 2: No acute abdominal abnormality. Reviewed, dictated and finalized at location A. IMPRESSION: 1. Large peripherally enhancing right hepatic lobe mass, compatible with karena ioma. No significant change from prior examination allowing for differences of technique. 2: No acute abdominal abnormality.
[2022-05-16 12:49] VITALS: BP 139/88; PULSE 62; RESP 14; TEMP 36.7; O2SAT 99
[2022-05-16 13:07] LABS: Basophils Percent Auto 0.5 % (0.2-1.2); Eosinophils Absolute Auto 0.2 K/mm3 (0-0.3); Eosinophils Percent Auto 2.4 % (0-4.4); Hematocrit 47.1 % (42.0-52.0); Hemoglobin 15.6 g/dL (14.0-18.0); Immature Granulocyte Absolute 0.03 K/mm3 (0.00-0.031); Immature Granulocyte Percent A 0.4 % (0-0.5); Lymphocytes Absolute Auto 1.76 K/mm3 (0.9-3.2); Lymphocytes Percent Auto 22.5 % (18.3-44.2); Mean Corpuscular HGB Conc 33.1 g/dl (32-36); Mean Corpuscular Hemoglobin 30.8 pg (26-34); Mean Corpuscular Volume 93.1 fl (80-100); Mean Platelet Volume 11.9 fl (7.4-10.4); Monocytes Absolute Auto 0.8 K/mm3 (0.1-0.6); Monocytes Percent Auto 9.7 % (2.6-8.5); Neutrophils Percent Auto 64.5 % (45.5-73.1); Platelet Count Result 234 k/mm3 (150-375); Red Blood Count 5.06 M/mm3 (4.6-6.20); Red Cell Distribution Width 13.1 % (11.5-14.5); White Blood Count 7.8 K/mm3 (4.5-10.0)
[2022-05-16 13:17] LABS: Appearance Urine Clear (Clear); Bilirubin Urine Negative (Negative); Color Urine Yellow (Yellow); Glucose Urine UA Negative (Negative); Ketones Urine Negative (Negative); Leukocyte Esterase Ur Negative LEU/UL (Negative); Nitrate Urine Negative (Negative); Protein Urine Negative (Negative); Urobilinogen Urine 0.2 mg/dL (<2.0)
[2022-05-16 13:21] LABS: Alanine Aminotransferase 22 U/L (6-50); Albumin Level 4.9 g/dL (3.5-5.1); Alkaline Phosphatase 83 U/L (38-126); Anion Gap 11 mmol/L (8-16); Aspartate Amino Transferase 25 U/L (17-59); Bilirubin,Total 0.7 mg/dL (0.2-1.3); Blood Urea Nitrogen 14 mg/dL (9-20); Calcium 9.2 mg/dL (8.4-10.2); Carbon Dioxide 28 mmol/L (22-30); Chloride 101 mmol/L (98-107); Estimated CRCL calculation 68 ml/min; Estimated Glomerular Filt Rate > 60; Glucose 100 mg/dL (65-110); Lipase 70 U/L (23-300); Potassium 4.3 mmol/L (3.4-5.0); Sodium 140 mmol/L (137-145)
[2022-05-16 13:28] LABS: Mucus Urine Rare /lpf; RBC Urine 0-2 /hpf (0-2); WBC Urine 0-3 /hpf
[2022-05-16 13:37] LABS: Add Urine Microscopic? YES; Blood Urine Trace-Intact (Negative)
[2022-05-16 14:24] VITALS: BP 159/88; PULSE 57; RESP 15; O2SAT 99
[2022-05-16 14:29] VITALS: BP 159/88; PULSE 60; RESP 14; O2SAT 99
--- NOTE | 2022-05-16 14:56 | ED.GENADULT ---
HPI - General Adult General Chief complaint: Abdominal Pain Stated complaint: abd pain Time Seen by Provider: 05/16/22 14:28 History of Present Illness HPI narrative: Patient is 67-year-old gentleman who presents emergency department with chief complaint of left lower quadrant pain. Patient reports that about 2 weeks has been having discomfort throughout his abdomen and reports that reports that it has localized down to the lower quadrants of his abdomen. Patient denies vomiting denies fever reports that he has had some looser stools patient was seen in urgent care had a plain film x-ray of his abdomen that showed evidence of possible colitis on a single plain film x-ray. Related Data Home Medications Medication Instructions Recorded Confirmed aspirin 81 mg tablet,delayed 81 mg PO DAILY 01/28/20 05/16/22 release (Adult Aspirin Regimen) latanoprost 0.005 % eye drops 1 drop LEFT EYE QPM 01/28/20 05/16/22 flaxseed oil 1,000 mg capsule 1,000 mg PO DAILY 09/30/20 05/16/22 krill 1 cap PO DAILY 09/30/20 05/16/22 yia-nj2-tlb-ehh-rv4-nou-astax 1,500 mg-165 mg-67.5 mg capsule (Krill Oil ([place] 3 and 6)) iicyvyid-sgf-oorol acid 300 1 tablet PO DAILY 09/30/20 05/16/22 mcg-lycopene 600 mcg-lutein 300 mcg tablet (Centrum Silver Men) triamcinolone acetonide 0.1 % 1 applic topical DIRECTED 11/14/21 05/16/22 topical ointment Allergies Allergy/AdvReac Type Severity Reaction Status Date / Time No Known Allergies Allergy Verified 05/16/22 10:29 Review of Systems Review of Systems: A 10 system review of systems was completed on the patient and is negative except for what is stated in the HPI. Nursing and ancillary documentation was reviewed. [facility] Past Medical History Medical History BPH w urinary obs/LUTS Hypertensive heart disease without heart failure Liver mass, right lobe cyst Mixed hyperlipidemia Restless legs syndrome Surgical History Surgical History Hx of appendectomy S/P TURP Family History Family History Other Family history of coronary artery disease Social History Social History Smoking status: Never smoker Second hand tobacco smoke exposure: No Alcohol intake: never Drinks per week: 3 Substance use: never Substance use type: does not use Gender identity (if verbalized by the patient): Male Spiritual care concerns: No Agree to blood products: Yes Exam Narrative: GENERAL: Well-appearing, well-nourished, and in no acute distress. HEAD: Normocephalic, atraumatic. EYES: PERRLA and EOMI. ENT: Nares clear, no rhinorrhea or epistaxis. Mucous membranes moist. NECK: Supple. CHEST: Clear to auscultation. No respiratory distress. HEART: Regular rate and rhythm. No murmur heard. Normal peripheral pulses. ABDOMEN: Soft, tender to palpation in the left lower quadrant, nondistended, normal active bowel sounds. EXTREMITIES: Normal range of motion. No edema. SKIN: Warm, dry, no rash. NEURO: No focal deficits. Alert and oriented x3. PSYCH: Normal mood and affect. Course Vital Signs Vital signs: Vital Signs Temperature 36.7 C 05/16/22 12:49 Pulse Rate 62 05/16/22 12:49 Respiratory Rate 14 05/16/22 12:49 Blood Pressure 139/88 05/16/22 12:49 Pulse Oximetry 99 05/16/22 12:49 Oxygen Delivery Room Air 05/16/22 12:49 Temperature 36.7 C 05/16/22 12:49 Pulse Rate 59 L 05/16/22 15:23 Respiratory Rate 18 05/16/22 15:23 Blood Pressure 147/85 H 05/16/22 15:23 Pulse Oximetry 99 05/16/22 15:23 Oxygen Delivery Room Air 05/16/22 14:24 Medical Decision Making Vital Signs Vital Signs: Vital Signs Temperature 36.7 C 05/16/22 12:49 Pulse Rate 62 05/16/22 12:49 Respiratory Rate
[2022-05-16 15:23] VITALS: BP 147/85; PULSE 59; RESP 18; O2SAT 99
== END 2022-05-16 16:07 | disposition home or self-care (01) ==
PROVIDERS: Emergency Provider Emergency Medicine; PCP Internal Medicine
DX: R10.84 Generalized abdominal pain (principal); N40.1 Benign prostatic hyperplasia with lower urinary tract symptoms; N13.8 Other obstructive and reflux uropathy; I11.9 Hypertensive heart disease without heart failure; G25.81 Restless legs syndrome; E78.2 Mixed hyperlipidemia; R16.0 Hepatomegaly, not elsewhere classified; Z79.82 Long term (current) use of aspirin
CPT/HCPCS: 36415; 74018; 74177; 80053; 81001; 81003; 83690; 85025; 99284; Q9967

== ENCOUNTER 2023-04-16 09:36 | Emergency (ER) | payer MEDICARE, OTHER, SELFPAY ==
--- NOTE | ~2023-04-16 | XR_ITS ---
EXAMINATION: XR elbow LT min 3V DATE: 04/16/2023 10:17 INDICATION: Left elbow injury and pain. TECHNIQUE: 4 views of left elbow were obtained. COMPARISON: None. FINDINGS: Bone alignment is normal. No fracture. Joint spaces are normal. There is an enthesophyte at medial humeral epicondyle. No elbow joint effusion. There is soft tissue swelling overlying the olec ranon. IMPRESSION: 1. No fracture. Reviewed, dictated and finalized at location A. IMPRESSION: 1. No fracture.
--- NOTE | ~2023-04-16 | XR_ITS ---
EXAMINATION: XR chest 2V DATE: 04/16/2023 10:17 INDICATION: Left upper anterior chest wall pain. TECHNIQUE: Frontal and lateral views of the chest were obtained. COMPARISON: CT abdomen and pelvis 05/16/2022, chest CT 07/20/2017 FINDINGS: A calcified right lung nodule is consistent with old granulomas disc disease. No pleural ef fusion or pneumothorax. The heart size is normal. There is ectasia of ascending aorta. IMPRESSION: 1. Ectasia of ascending aorta. Reviewed, dictated and finalized at location A.
--- NOTE | 2023-04-16 09:41 | ED.GENADULT ---
HPI - General Adult General Chief complaint: Chest Pain Stated complaint: chest discomfort Time Seen by Provider: 04/16/23 09:41 Source: patient Mode of arrival: ambulatory Limitations: no limitations History of Present Illness HPI narrative: 68-year-old male patient presents to the [facility] with complaints of left elbow pain and left upper chest pain. Patient states he bumped his elbow a couple weeks ago and states that still feel sore. Patient has noticed that at night when he raises his left arm up and rest his head to go to sleep on his left arm at about midnight 1 or 2:00 a.m. in the morning he wakes up because his hand feels numb kind of tingly sore and does have pain that goes across the left clavicle area. Patient states once he repositioned the pain numbness and tingling does go away. Patient states this has been happening off and on for the past 10 days and is concerned. Denies any shortness of breath at this time. Denies any history of blood clots in the past. Denies any history of thoracic outlet syndrome. Patient states he is able to do his normal daily activities dry out throughout the day has no pain to the left arm or chest when this occurs only complaining when he lays on his left arm. Related Data Home Medications Medication Instructions Recorded Confirmed aspirin 81 mg tablet,delayed 81 mg PO DAILY 01/28/20 04/16/23 release (Adult Aspirin Regimen) latanoprost 0.005 % eye drops 1 drop LEFT EYE QPM 01/28/20 04/16/23 flaxseed oil 1,000 mg capsule 1,000 mg PO DAILY 09/30/20 04/16/23 krill 1 cap PO DAILY 09/30/20 04/16/23 hrh-ks9-wqe-shj-mm1-ogw-astax 1,500 mg-165 mg-67.5 mg capsule (Krill Oil ([place] 3 and 6)) carboxymethylcellulose sodium 0.5 1 drp EACH EYE 4-6XD 10/13/22 04/16/23 % eye drops in a dropperette (Refresh Plus) neomycin-polymyxin B-dexameth eye 1 drp ophthalmic (eye) HS 10/13/22 04/16/23 drops,suspension timolol 0.25 % eye drops 1 drp EACH EYE Q12H 10/13/22 04/16/23 turmeric root extract 500 mg tablet 500 mg PO DAILY 10/13/22 04/16/23 jvqxgkym-jjx-xxviv acid 300 1 tablet PO .COMPLEX 11/10/22 04/16/23 mcg-lycopene 600 mcg-lutein 300 mcg tablet (Centrum Silver Men) tamsulosin 0.4 mg capsule 0.4 mg PO QHS 11/10/22 04/16/23 Allergies Allergy/AdvReac Type Severity Reaction Status Date / Time No Known Allergies Allergy Verified 04/16/23 09:56 Review of Systems Review of Systems: CONSTITUTIONAL: Denies fever, chills, or sweats. EYES: Denies visual changes, redness, or discharge. ENT: Denies rhinorrhea, congestion, sore throat, or otalgia. CARDIOVASCULAR: Positive left upper chest pain near clavicle, denies palpitations, or edema. RESPIRATORY: Denies cough or dyspnea. GASTROINTESTINAL: Denies abdominal pain, nausea, vomiting, or diarrhea. GENITOURINARY: Denies dysuria or hematuria. SKIN: Denies rash or itching. MUSCULOSKELETAL: Denies back pain, joint pain, or myalgia. positive left arm numbness, tingling and left elbow pain NEUROLOGIC: Denies headache, numbness, or weakness. PSYCHIATRIC: Denies anxiety or depression. [facility] Past Medical History Medical History Abdominal pain BPH w urinary obs/LUTS History of skin cancer Hypertensive heart disease without heart failure Liver mass, right lobe cyst Mixed hyperlipidemia Restless legs syndrome Surgical History Surgical History Hx of appendectomy S/P TURP Status post glaucoma surgery Family History Family History Father Heart disease Son Pancreatitis Unknown Diabetes mellitus Other Family history of coronary artery disease Social History Social History Social History: denies caffeine use Smoking status: Never smoker Second hand tobacco smoke exposure: No Alcohol intake: c
[2023-04-16 09:50] VITALS: BP 133/74; PULSE 61; RESP 18; TEMP 36.1; O2SAT 100
--- NOTE | 2023-04-16 09:58 | ECG_ITS ---
Measurements Intervals [place] Rate: 52 P: 30 AL: 213 QRS: 15 QRSD: 92 T: 38 QT: 417 QTc: 390 Interpretive Statements SINUS BRADYCARDIA WITH FIRST DEGREE AV BLOCK EARLY PRECORDIAL R/S TRANSITION VOLTAGE CRITERIA FOR LVH BORDERLINE ECG COMPARED TO ECG 10/06/2020 09:26:00 FIRST DEGREE AV BLOCK NOW PRESENT Electronically Signed On 04-16-2023 18:42:18 CDT by Arun MARIO
[2023-04-16 09:59] VITALS: BP 133/74; PULSE 61; RESP 18; TEMP 36.1; O2SAT 100
== END 2023-04-16 10:49 | disposition short-term general hospital (02) ==
PROVIDERS: Emergency Provider Nurse Practitioner Family; PCP Physician Assistant Medical
DX: R07.9 Chest pain, unspecified (principal); M25.522 Pain in left elbow; N40.1 Benign prostatic hyperplasia with lower urinary tract symptoms; E78.2 Mixed hyperlipidemia; G25.81 Restless legs syndrome; I11.9 Hypertensive heart disease without heart failure; Z85.828 Personal history of other malignant neoplasm of skin
CPT/HCPCS: 71046; 73080; 93005; 99214; G0463

== ENCOUNTER 2023-04-16 11:03 | Observation (INO) | payer MEDICARE, OTHER, SELFPAY ==
[2023-04-16] VITALS (23 sets, daily range): BP systolic 104–159; BP diastolic 61–86; PULSE 47–79; RESP 12–24; TEMP 36.2–36.4; O2SAT 97–100; BMI 27.1
--- NOTE | 2023-04-16 11:05 | ECG_ITS ---
Rate UT QRSd QT QTc P QRS T Severity 52 213 92 417 390 30 15 38 Abnormal ECG SINUS BRADYCARDIA WITH FIRST DEGREE AV BLOCK EARLY PRECORDIAL R/S TRANSITION VOLTAGE CRITERIA FOR LVH BORDERLINE ECG Electronically Signed On 04-17-2023 10:18:39 CDT by Arun Henderson D.O. COMPARED TO ECG 04/16/2023 09:54:54 FIRST DEGREE AV BLOCK NOW PRESENT LEFT VENTRICULAR HYPERTROPHY NOW PRESENT MTDD
[2023-04-16 11:51] LABS: Basophils Percent Auto 0.7 % (0.2-1.2); Eosinophils Absolute Auto 0.2 K/mm3 (0-0.3); Eosinophils Percent Auto 3.9 % (0-4.4); Hematocrit 45.5 % (42.0-52.0); Hemoglobin 15.2 g/dL (14.0-18.0); Immature Granulocyte Absolute 0.02 K/mm3 (0.00-0.031); Immature Granulocyte Percent A 0.3 % (0-0.5); Lymphocytes Absolute Auto 1.61 K/mm3 (0.9-3.2); Lymphocytes Percent Auto 27.2 % (18.3-44.2); Mean Corpuscular HGB Conc 33.4 g/dl (32-36); Mean Corpuscular Hemoglobin 31.5 pg (26-34); Mean Corpuscular Volume 94.4 fl (80-100); Mean Platelet Volume 11.8 fl (7.4-10.4); Monocytes Absolute Auto 0.6 K/mm3 (0.1-0.6); Monocytes Percent Auto 10.8 % (2.6-8.5); Neutrophils Absolute Auto 3.4 K/mm3 (1.3-6.7); Neutrophils Percent Auto 57.1 % (45.5-73.1); Platelet Count Result 225 k/mm3 (150-375); Red Blood Count 4.82 M/mm3 (4.6-6.20); Red Cell Distribution Width 13.2 % (11.5-14.5); White Blood Count 5.9 K/mm3 (4.5-10.0)
[2023-04-16 12:01] LABS: INR 0.9; Prothrombin Time 12.9 Seconds (11.1-14.7)
[2023-04-16 12:02] LABS: Partial Thromboplastin Time 27.5 SECONDS (22.3-36.8)
[2023-04-16 12:05] LABS: Alanine Aminotransferase 25 U/L (6-50); Albumin Level 4.5 g/dL (3.5-5.1); Alkaline Phosphatase 77 U/L (38-126); Anion Gap 4 mmol/L (8-16); Aspartate Amino Transferase 26 U/L (17-59); Bilirubin,Total 0.6 mg/dL (0.2-1.3); Blood Urea Nitrogen 22 mg/dL (9-20); Calcium 9.1 mg/dL (8.4-10.2); Carbon Dioxide 31 mmol/L (22-30); Chloride 103 mmol/L (98-107); Estimated CRCL calculation 61 ml/min; Estimated Glomerular Filt Rate > 60; Glucose 92 mg/dL (65-110); Lipase 62 U/L (23-300); Potassium 4.7 mmol/L (3.4-5.0); Sodium 138 mmol/L (137-145)
[2023-04-16 12:16] LABS: Troponin I < 0.012 ng/mL (0.000-0.034)
[2023-04-16] MEDS: ASPIRIN 81 MG CHEWABLE TABLET 324 MG PO (12:23)
--- NOTE | 2023-04-16 12:23 | ED.CHESTPAIN ---
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 Currently patient is asymptomatic. Patient reported that his father and his younger brother had history of heart attack. Patient denies any fever, chills, nausea, vomiting, shortness of breath, back pain. Related Data Home Medications Medication Instructions Recorded Confirmed aspirin 81 mg tablet,delayed 81 mg PO DAILY 01/28/20 04/16/23 release (Adult Aspirin Regimen) latanoprost 0.005 % eye drops 1 drop LEFT EYE QPM 01/28/20 04/16/23 flaxseed oil 1,000 mg capsule 1,000 mg PO DAILY 09/30/20 04/16/23 krill 1 cap PO DAILY 09/30/20 04/16/23 cup-fz0-eno-dny-jf6-avn-astax 1,500 mg-165 mg-67.5 mg capsule (Krill Oil ([place] 3 and 6)) carboxymethylcellulose sodium 0.5 1 drp EACH EYE 4-6XD 10/13/22 04/16/23 % eye drops in a dropperette (Refresh Plus) neomycin-polymyxin B-dexameth eye 1 drp ophthalmic (eye) HS 10/13/22 04/16/23 drops,suspension timolol 0.25 % eye drops 1 drp EACH EYE Q12H 10/13/22 04/16/23 turmeric root extract 500 mg tablet 500 mg PO DAILY 10/13/22 04/16/23 fvfmaljd-ars-seozw acid 300 1 tablet PO .COMPLEX 11/10/22 04/16/23 mcg-lycopene 600 mcg-lutein 300 mcg tablet (Centrum Silver Men) tamsulosin 0.4 mg capsule 0.4 mg PO QHS 11/10/22 04/16/23 Allergies Allergy/AdvReac Type Severity Reaction Status Date / Time No Known Allergies Allergy Verified 04/16/23 11:04 Review of Systems Review of Systems: All systems reviewed & are unremarkable except as noted in HPI and below PMFSH Past Medical History Medical History Abdominal pain BPH w urinary obs/LUTS History of skin cancer Hypertensive heart disease without heart failure Liver mass, right lobe cyst Mixed hyperlipidemia Restless legs syndrome Surgical History Surgical History Hx of appendectomy S/P TURP Status post glaucoma surgery Family History Family History Father Heart disease Son Pancreatitis Unknown Diabetes mellitus Other Family history of coronary artery disease Social History Social History Social History: denies caffeine use Smoking status: Never smoker Second hand tobacco smoke exposure: No Alcohol intake: current Drinks per week: 3 Alcohol use details: 1/2 bottle wine weekly Substance use: never Substance use type: does not use Living arrangements: with family Additional living arrangements comments: 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 Musculoskeletal: Normal range of motion, nontender back Neurologic: Alert and oriented ?3, CATH LAB RADIOLOGICAL TECHNOLOGIST is normal as tested, no gross motor deficit
--- NOTE | 2023-04-16 14:16 | PM.IMHP ---
H&P: HPI History of Present Illness Date/Time: 04/16/23 14:16 Chief Complaint: Chest pain Narrative: 68 years old white male with history of hypertension, hyperlipidemia, presented to the ED with a chief complaint of chest pain, left elbow pain. 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 Patient has been having intermittent left chest pain about 1 week ago. Patient denies cough, palpitation, fever, chills, abdomen pain, nausea vomiting diarrhea. Patient continued evaluation. In the ED, patient is found to have sinus bradycardia, troponin is negative,, lab elbow x-ray shows no fracture, chest x-ray shows no acute cardiopulmonary issues. There is ectasia of ascending aorta. EKG shows sinus rhythm with nonspecific STT wave changes patient received aspirin 325 mg once, aspirin 81 daily p.o. is ordered Review of Systems Review of Systems: ROS negative sent above [facility] Past Medical History Medical History Abdominal pain BPH w urinary obs/LUTS History of skin cancer Hypertensive heart disease without heart failure Liver mass, right lobe cyst Mixed hyperlipidemia Restless legs syndrome Surgical History Surgical History Hx of appendectomy S/P TURP Status post glaucoma surgery Family History Family History Father Heart disease Son Pancreatitis Unknown Diabetes mellitus Other Family history of coronary artery disease Social History Social History Social History: denies caffeine use Smoking status: Never smoker Second hand tobacco smoke exposure: No Alcohol intake: current Drinks per week: 3 Alcohol use details: 1/2 bottle wine weekly Substance use: never Substance use type: does not use Lack of Transportation: No Lack of Food: Never True Current Housing: I Have Housing Concerned About Future Housing: No Difficulty Paying Gas/Electric Bills: No Difficulty Paying for Meds: No Currently Unemployed: No Education: Decline to Answer Difficulty w/ Childcare or Family Care: No Living arrangements: with family Additional living arrangements comments: 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 Gender identity (if verbalized by the patient): Male Spiritual care concerns: No Agree to blood products: Yes Meds Home Medications and Allergies Home Medications Medication Instructions Recorded Confirmed Type aspirin 81 mg tablet,delayed 81 mg PO DAILY 01/28/20 04/16/23 History release (Adult Aspirin Regimen) latanoprost 0.005 % eye drops 1 drop LEFT EYE QPM 01/28/20 04/16/23 History flaxseed oil 1,000 mg capsule 1,000 mg PO DAILY 09/30/20 04/16/23 History krill 1 cap PO DAILY 09/30/20 04/16/23 History awo-qc9-tos-duz-mh0-ong-astax 1,500 mg-165 mg-67.5 mg capsule (Krill Oil ([place] 3 and 6)) carboxymethylcellulose sodium 0.5 1 drp EACH EYE 4-6XD PRN Eye 10/13/22 04/16/23 History % eye drops in a dropperette Irritation (Refresh Plus) neomycin-polymyxin B-dexameth eye 1 drp ophthalmic (eye) HS 10/13/22 04/16/23 History drops,suspension timolol 0.25 % eye drops 1 drp LEFT EYE Q12H 10/13/22 04/16/23 History fzbgiddd-qom-spdrv acid 300 1 tablet PO DAILY 11/10/22 04/16/23 History mcg-lycopene 600 mcg-lutein 300 mcg tablet (Centrum Silver Men) tamsulosin 0.4 mg capsule 0.4 mg PO QHS 11/10/22 04/16/23 History pramipexole 0.75 mg tablet 0.75 mg PO DAILY #90 tabs 02/16/23 04/16/23 Rx metoprolol succinate 50 mg 50 mg PO HS 04/16/23 04/16/23 History tablet,extended release 24 hr simvastatin 20 mg tablet 20 mg PO HS 04/16/23 04/16/23 History Allergies Allergy/AdvReac Type Severity Reaction Status Date / Time
--- NOTE | 2023-04-16 14:40 | ADMGEN ---
This patient, Dave Spicer, was admitted to IMU Room 212-01 at 1435. Patient/family oriented to hospital policies and general routines including ID bracelet, bed and alarms, visiting hours, pain management, procedures, bathroom and other care routines, personal items, smoking policy, room service/diet, and visiting hours. Information on how to activate the Rapid Response Team has been discussed. Patient/Family are encouraged to report perceived risks to care and to ask questions if they do not understand what they are told or what they should do.
[2023-04-16 18:36] LABS: Troponin I < 0.012 ng/mL (0.000-0.034)
[2023-04-16 19:58] LABS: Cholesterol 132 mg/dL (0-200); HDL Direct 32 mg/dL; Triglycerides 174 mg/dL (<150)
[2023-04-16 20:08] LABS: LDL Cholesterol Direct 70 mg/dL
[2023-04-16 20:21] LABS: Troponin I < 0.012 ng/mL (0.000-0.034)
[2023-04-16 21:45] LABS: Troponin I < 0.012 ng/mL (0.000-0.034)
[2023-04-17] VITALS (9 sets, daily range): BP systolic 119–151; BP diastolic 71–77; PULSE 49–82; RESP 12–20; TEMP 36.5–36.9; O2SAT 98–100
--- NOTE | 2023-04-17 | ECHO_ITS ---
Patient Info Name: Dave Spicer Age: 68 years : 1955 Gender: Male Ht: 72 in Wt: 205 lbs BSA: 2.19 m2 HR: 72 bpm BP: 119 / 71 mmHg Heart Rhythm: Sinus Rhythm Technical Quality: Good Exam Date: 04/17/2023 11:15 AM Exam Location: [facility] Patient Status: Inpatient Admit Date: 04/16/2023 Staff Ordering Physician: Liana Lopez MD Gluing Machine Operator: Mckayla Daley RDCS Attending Provider: Krystian Lazcano MD Exam Type: CA echo doppler color flow Study Info Indications R07.9 - Chest pain, unspecified Complete two-dimensional, color flow and Doppler transthoracic echocardiogram is performed. Summary 1. Complete two-dimensional, color flow and Doppler transthoracic echocardiogram is performed. 2. Normal left ventricular size and systolic function without any regional wall motion abnormality. 3. Grade 1 diastolic noncompliance. 4. No valvular dysfunction identified. Left Ventricle Left ventricular chamber dimension is normal. Left ventricular systolic function is normal, estimated at 65-70%. The left ventricular diastolic function is grade I diastolic dysfunction. Right Ventricle Right ventricular chamber dimension is normal. Left Atria Left atrial chamber dimension is normal. Right Atria Right atrial chamber dimension is normal. Aortic Valve The aortic valve is normal. Pulmonic Valve The pulmonic valve is not well visualized. Mitral Valve The mitral valve has normal leaflets. Tricuspid Valve The tricuspid valve leaflets are normal. Pericardium/Pleural The pericardium appears normal. Aorta The aortic root size at the sinus of Valsalva is normal. Left Ventricular Outflow Tract Name Value Normal LVOT 2D LVOT Diameter 2.1 cm LVOT Doppler LVOT Peak Gradient 5 mmHg LVOT Mean Gradient 4 mmHg LVOT VTI 27 cm LVOT VTI/AV VTI Ratio 1.1 LVOT Stroke Volume 90 ml LVOT CO 18.3 l/min LVOT CI 8.4 l/min/m2 Pulmonic Valve Name Value Normal PV Doppler PV Peak Gradient 7 mmHg Mitral Valve Name Value Normal MV Doppler MV Decel Dimmit 267 cm/s2 MV PHT 80 ms MV Area (PHT) 2.8 cm2 4.0-5.0 MV Diastolic Function MV E Peak Velocity 73 cm/s MV A Peak Velocity 86 cm/s MV E/A 0.9 MV Decel Time
[2023-04-17 04:38] LABS: Hematocrit 40.1 % (42.0-52.0); Hemoglobin 13.5 g/dL (14.0-18.0); Mean Corpuscular HGB Conc 33.7 g/dl (32-36); Mean Corpuscular Hemoglobin 31.3 pg (26-34); Mean Platelet Volume 12.2 fl (7.4-10.4); Platelet Count Result 187 k/mm3 (150-375); Red Blood Count 4.31 M/mm3 (4.6-6.20); Red Cell Distribution Width 12.9 % (11.5-14.5); White Blood Count 6.7 K/mm3 (4.5-10.0)
--- NOTE | 2023-04-17 08:33 | PM.IMPN ---
Progress Note: A&P Assessment and Plan (1) Chest pain: Qualifiers: Chest pain type: unspecified Qualified Code(s): R07.9 - Chest pain, unspecified Code(s): R07.9 - Chest pain, unspecified Status: Acute (2) Uncontrolled hypertension: Code(s): I10 - Essential (primary) hypertension Status: Acute (3) Elbow pain: Code(s): M25.529 - Pain in unspecified elbow Status: Acute (4) Sinus bradycardia: Code(s): R00.1 - Bradycardia, unspecified Status: Acute Plan Chest pain Need to rule out ACS Troponins negative, EKG shows sinus bradycardia no specific activity changes Start aspirin 81 mg daily p.o., nitroglycerin sublingual p.r.n. Follow serial troponin, EKG as in ED echocardiogram is done, evaluated by reed dipper, unremarkable Telemetry monitoring shows no significant arrhythmia Consult reed dipper evaluation and treatment, cardioverted considers patient has no assess Uncontrolled hypertension Patient has sinus bradycardia, hold Lopressor p.o. Start losartan 50 mg daily p.o. Sinus bradycardia No obvious AV block, patient denies dizziness Hold metoprolol p.o. Telemetry monitoring Avoid beta radha, CALCIUM channel radha, and avoid any medications that can cause AV block Elbow pain X-ray shows no fracture Pain management Subjective Date/time seen: 04/17/23 08:33 Interval history: I saw exam patient today. Patient feels comfortable, denies chest pain, patient is afebrile, hemodynamically stable, equipment monitor phototypesetting shows no significant arrhythmia. Exam Narrative: GENERAL: Pleasant, in no acute distress. Well-nourished. - EYES: EOMI. Anicteric. - HENT: Moist mucous membranes. - LUNGS: Clear to auscultation bilaterally, no wheezing, rhonchi, or rales. - CARDIOVASCULAR: Regular rate and rhythm. No murmur. No JVD. - ABDOMEN: Soft, non-tender and non-distended. No palpable masses. - EXTREMITIES: No edema. Peripheral pulses 2+. Non-tender. Left elbow tender without hematoma, erythema, or swelling - NEUROLOGIC: No focal neurological deficits. CN II-XII grossly intact. - PSYCHIATRIC: Awake, Alert and oriented x 3. Appropriate mood and affect. - SKIN: No rashes or lesions. Warm. - LYMPH: No cervical lymphadenopathy. Objective Data Vital Signs Vital Signs: Vital Signs - 24 hr 04/16/23 11:42 04/16/23 12:00 04/16/23 11:57 Temperature 97.1 F L Pulse Rate 50 L 58 L 52 L Respiratory Rate 16 Blood Pressure 159/79 H Pulse Oximetry 100 Oxygen Delivery Room Air 04/16/23 12:18 04/16/23 12:26 04/16/23 12:30 Temperature Pulse Rate 53 L 53 L 53 L Respiratory Rate 12 15 13 Blood Pressure 138/83 Pulse Oximetry Oxygen Delivery 04/16/23 12:31 04/16/23 12:45 04/16/23 12:46 Temperature Pulse Rate 52 L 55 L 57 L Respiratory Rate 15 24 H 18 Blood Pressure 147/82 H 156/84 H Pulse Oximetry Oxygen Delivery 04/16/23 13:11 04/16/23 14:20 04/16/23 13:20 Temperature Pulse Rate 49 L 58 L 52 L Respiratory Rate 13 16 13 Blood Pressure 147/78 H Pulse Oximetry 99 Oxygen Delivery 04/16/23 13:30 04/16/23 13:45 04/16/23 13:46 Temperature Pulse Rate 53 L 79 54 L Respiratory Rate 18 18 17 Blood Pressure 133/82 Pulse Oximetry Oxygen Delivery 04/16/23 14:00 04/16/23 14:01 04/16/23 14:40 Temperature 97.6 F Pulse Rate 47 L 51 L 51 L Respiratory Rate 15 16 14 Blood Pressure 136/86 104/74 Pulse Oximetry 100 Oxygen Delivery 04/16/23 16:00 04/16/23 16:00 04/16/23 16:00 Temperature 97.6 F Pulse Rate 58 L 61 Respiratory Rate 18 Blood Pressure 133/72 Pulse Oximetry 99 Oxygen Delivery Room Air 04/16/23 19:58 04/16/23 20:00 04/16/23 23:10 Temperature 97.3 F L 97.4 F L Pulse Rate 70 69 67 Respiratory Rate 20 20 Blood Pressure 129/70 109/61 Pulse Oximetry 97 100 Oxygen Delivery 04/16/23 22:00 04/17/23 00:00 04/17/23 02:00 Temperature Pul
--- NOTE | 2023-04-17 08:52 | PM.CNCAR ---
Assessment and Plan Assessment and plan (1) Chest pain: Qualifiers: Chest pain type: unspecified Qualified Code(s): R07.9 - Chest pain, unspecified Code(s): R07.9 - Chest pain, unspecified Status: Acute Assessment and Plan: He does not describe chest pain. He is having discomfort on the left side of his neck that extends down to the area of his clavicle. He had negative serial troponin levels and EKG did not have any ischemic STTW abnormalities. The discomfort he describes is atypical for angina and is most consistent with musculoskeletal pain. No further cardiac workup is recommended at this time. Cardiology will sign off. Please call with questions. (2) Uncontrolled hypertension: Code(s): I10 - Essential (primary) hypertension Status: Acute Assessment and Plan: He has had several measurements that are elevated, but generally his blood pressure is well controlled. 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 History of Present Illness History of Present Illness Consult date/time: 04/17/23 08:52 Requesting physician: Liana Lopez MD Consult reason: chest pain Reason For Visit: Chest pain Narrative: Mr. Spicer is a 68-year-old male with a history of hyperlipidemia who was sent from urgent care to the emergency department yesterday. He was at urgent care because of some elbow pain he had been having after bumping his arm on a piece of farm equipment several weeks ago. About 5-7 days ago he began experiencing some discomfort in his neck with that extends down to his shoulder/clavicle area. Apparently, when he described this to the provider at the urgent care they consider this to be chest pain and sent into the emergency department. Patient states that this pain in his neck usually occurs at night and after sleeping. He rates that as of intensity level of 1 on 0-10 pain scale. No shortness of breath, diaphoresis, nausea associated with the pain. He is very active on a daily basis with his work as a [employer] and does not experience any type of exertional anterior chest discomfort. He denies any history of cardiac problems. He denies any shortness of breath, palpitations, swelling, orthopnea, syncope, or presyncope. Currently, he is lying comfortably in bed does not have any complaints. Review of Systems Review of Systems: All systems reviewed & are unremarkable except as noted in HPI and below PMFSH Past Medical History Medical History Abdominal pain BPH w urinary obs/LUTS History of skin cancer Hypertensive heart disease without heart failure Liver mass, right lobe cyst Mixed hyperlipidemia Restless legs syndrome Surgical History Surgical History Hx of appendectomy S/P TURP Status post glaucoma surgery Family History Family History Father Heart disease Son Pancreatitis Unknown Diabetes mellitus Other Family history of coronary artery disease Social History Social History Social History: denies caffeine use Smoking status: Never smoker Second hand tobacco smoke exposure: No Alcohol intake: current Drinks per week: 3 Alcohol use details: 1/2 bottle wine weekly Substance use: never Substance use type: does not use Lack of Transportation: No Lack of Food: Never True Current Housing: I Have Housing Concerned About Future Housing: No Difficulty Paying Gas/Electric Bills: No Difficulty Paying for Meds: No Currently Unemployed: No Education: Decline to Answer Difficulty w/ Childcare or Family Care: No Living arrangements: with family Additional living arrangements comments: Additional oc
[2023-04-17] MEDS: ATORVASTATIN 40 MG TABLET PO (09:21)
[2023-04-17] MEDS: LOSARTAN POTASSIUM 50 MG TABLET PO (09:21)
[2023-04-17] MEDS: ASPIRIN 81 MG CHEWABLE TABLET PO (09:21)
--- NOTE | 2023-04-17 12:16 | PM.DS ---
DS: Admitting Diagnosis Discharge Date Today Admitting Diagnosis (1) Chest pain: ?Qualifiers: ?Chest pain type:?unspecified? Qualified Code(s):?R07.9 - Chest pain, unspecified ?Code(s): R07.9 - Chest pain, unspecified ?Status:?Acute (2) Uncontrolled hypertension: ?Code(s): I10 - Essential (primary) hypertension ?Status:?Acute (3) Elbow pain: ?Code(s): M25.529 - Pain in unspecified elbow ?Status:?Acute (4) Sinus bradycardia: ?Code(s): R00.1 - Bradycardia, unspecified ?Status:?Acute DS: Discharge Diagnosis Discharge Diagnosis (1) Chest pain: Qualifiers: Chest pain type: unspecified Qualified Code(s): R07.9 - Chest pain, unspecified Code(s): R07.9 - Chest pain, unspecified Status: Acute (2) Uncontrolled hypertension: Code(s): I10 - Essential (primary) hypertension Status: Acute (3) Elbow pain: Code(s): M25.529 - Pain in unspecified elbow Status: Acute (4) Sinus bradycardia: Code(s): R00.1 - Bradycardia, unspecified Status: Acute DS: Summary Hospital Course Reason for hospitalization: Chest pain Hospital Course: The following medical issues have been addressed in the hospital Chest pain Troponins negative, EKG shows sinus bradycardia no specific activity changes Received aspirin 81 mg daily p.o., nitroglycerin sublingual p.r.n. serial troponin negative, EKG as in ED shows specific ST T wave changes, sinus rhythm, unremarkable except sinus bradycardia echocardiogram is done, evaluated by fill plant operator, Telemetry monitoring shows no significant arrhythmia Consult fill plant operator evaluation and treatment, fill plant operator considers patient has no acute coronary syndrome Uncontrolled hypertension Patient has sinus bradycardia, hold Lopressor p.o. Start losartan 50 mg daily p.o. Sinus bradycardia No obvious AV block, patient denies dizziness Hold metoprolol p.o. Telemetry monitoring shows no significant arrhythmia Avoid beta radha, CALCIUM channel radha, and avoid any medications that can cause AV block Elbow pain X-ray shows no fracture Pain management Patient will be discharged home today, hospital course uneventful Time Spent with Patient Time attestation: Total time spent providing and/or coordinating discharge services: Exam Narrative: GENERAL: Pleasant, in no acute distress. Well-nourished. - EYES: EOMI. Anicteric. - HENT: Moist mucous membranes. - LUNGS: Clear to auscultation bilaterally, no wheezing, rhonchi, or rales. - CARDIOVASCULAR: Regular rate and rhythm. No murmur. No JVD. - ABDOMEN: Soft, non-tender and non-distended. No palpable masses. - EXTREMITIES: No edema. Peripheral pulses 2+. Non-tender. Left elbow tender without hematoma, erythema, or swelling - NEUROLOGIC: No focal neurological deficits. CN II-XII grossly intact. - PSYCHIATRIC: Awake, Alert and oriented x 3. Appropriate mood and affect. - SKIN: No rashes or lesions. Warm. - LYMPH: No cervical lymphadenopathy. DS: Data Data Completed and Pending Labs on day of discharge: Labs from last 24 hours 04/17/23 04/16/23 04/16/23 04:19 21:16 19:20 WBC 6.7 RBC 4.31 L Hgb 13.5 L Hct 40.1 L MCV 93.0 MCH 31.3 MCHC 33.7 RDW 12.9 Plt Count 187 MPV 12.2 H Troponin I < 0.012 < 0.012 Triglycerides Cholesterol LDL Cholesterol Direct HDL Direct 04/16/23 04/16/23 04/16/23 19:02 17:51 11:44 WBC RBC Hgb Hct MCV MCH MCHC RDW Plt Count MPV Troponin I < 0.012 < 0.012 Triglycerides 174 H Cholesterol 132 LDL Cholesterol Direct 70 HDL Direct 32 Discharge Plan Discharge Attending physician on discharge: Liana Lopez Consulting providers: Clara Ho Discharging Clinician: Liana Lopez Anticipated Discharge Date/Time: 04/17/23 12:10 Patient Disposition: Home, Self-Care A
== END 2023-04-17 13:07 | disposition home or self-care (01) ==
LOC: ANHED 13:13 → ANHIMU 14:41
PROVIDERS: Emergency Medicine; Admitting Provider Family Medicine; Emergency Provider Emergency Medicine; PCP Physician Assistant Medical; Visit Provider Hospitalist
DX: R07.9 Chest pain, unspecified (principal); M25.522 Pain in left elbow; W22.8XXA Striking against or struck by other objects, initial encounter; Y92.79 Other farm location as the place of occurrence of the external cause; N40.1 Benign prostatic hyperplasia with lower urinary tract symptoms; I11.9 Hypertensive heart disease without heart failure; G25.81 Restless legs syndrome; E78.5 Hyperlipidemia, unspecified; I44.0 Atrioventricular block, first degree; F10.90 Alcohol use, unspecified, uncomplicated; Z82.49 Family history of ischemic heart disease and other diseases of the circulatory system; Z79.82 Long term (current) use of aspirin; Z79.899 Other long term (current) drug therapy
CPT/HCPCS: 36415; 71046; 73080; 80053; 80061; 83690; 84484; 85025; 85027; 85610; 85730; 93005; 93306; 99285; A9270; G0378

== ENCOUNTER 2024-07-05 12:16 | Outpatient (CLI) | payer MEDICARE, OTHER, SELFPAY ==
--- NOTE | ~2024-07-05 | PE_ITS ---
EXAMINATION: PET_PETPSMAST_PT DATE: 07/05/2024 14:41 INDICATION: Malignant neoplasm of prostate. TECHNIQUE: 5.481 mCi of Ga-68 gozetotide was administered intravenously. Low dose computed tomography (CT) images were acquired from the base of the brain to the proximal thighs for attenuation correcti on and anatomic localization. Automated exposure control was employed. Dose-length product (DLP) was 1213 mGy-cm. Positron emission tomography (PET) images were acquired in the same distribution. COMPARISON: CT abdomen and pelvis 05/16/2022 FINDINGS: Head/neck: There are likely changes of right ocular lens replacement surgery. There is a 1.9 x 1.2 cm subcutaneous mass in the left lower face without increased activity. Chest: The lungs demonstrate mild atelectasis. A calcified right lung nodule and calcified right naina r lymph node are consistent with old granulomatous disease. No pleural effusion. The heart size is no rmal. No pericardial effusion. Abdomen/pelvis/proximal thighs: There is a chronic 11.1 cm mass in right hepatic lobe with interrupte d peripheral puddling of contrast on the prior CT, consistent with a hemangioma. The gallbladder, spl een, pancreas, and left adrenal gland are normal. There is a chronic 12 mm mass in right adrenal glan d without increased activity, likely an adenoma. There is a 5.8 cm cyst in right kidney. Left kidney is normal. The prostate is moderately enlarged. There is increased activity in the prostate on the ri ght with maximum SUV of 21.4. There is diverticulosis of the colon without evidence of diverticulitis . There are no dilated loops of bowel. There are no pathologically enlarged lymph nodes. There is no free intraperitoneal fluid. There is a left inguinal hernia containing fat. There is a chronic benign bone island in right ilium. IMPRESSION: 1. Mildly enlarged prostate with increased activity on the right, consistent with primary malignancy. No evidence of metastatic disease. 2. 1.9 x 1.2 cm subcutaneous mass in left lower face. This finding is nonspecific, but may be a sebac eous cyst. Reviewed, dictated and finalized at location A. IMPRESSION: 1. Mildly enlarged prostate with increased activity on the right, consistent wi th primary malignancy. No evidence of metastatic disease. 2. 1.9 x 1.2 cm subcutaneous mass in left lower face. This finding is nonspecif ic, but may be a sebaceous cyst.
== END 2024-07-05 12:17 | disposition home or self-care (01) ==
LOC: ANHIMG 12:18
PROVIDERS: PCP Nurse Practitioner Family; Visit Provider Radiology Radiation Oncology
DX: C61 Malignant neoplasm of prostate (principal); R22.0 Localized swelling, mass and lump, head
CPT/HCPCS: 78815; A9596

== ENCOUNTER 2024-08-15 09:00 | Outpatient (RCR) | payer MEDICARE, OTHER, SELFPAY ==
--- NOTE | 2024-05-30 14:35 | PTOPEVAL1 ---
Assessment and note entered by Carolynn Boles, PT Evaluation Information Assessment Status Evaluation ICD-10 Condition Codes (PT) Cervicalgia M54.2 Other ICD-10 Condition Codes ( abnormal posture, stiffness cervical spine PT) Onset 4-6 weeks ago Subjective Information No traumatic incident. Woke up with pain. Mostly on the right but sometimes on the left. Turning to the right is painful, no issues wiht turning to the left. Medication helped but stopped taking it for a biopsy procedure but can restart taking it again. Doesn't remember what it was, states muscle relaxer and ordered ibuprofen. Prior Reported Pain Level Pain Score 2: Self Report Assessment PT Clinical Summary Pt reports has been having pain in the neck about 4-6 weeks, without traumatic incident. Pain never goes away but is always mild. Increases with looking right. Demo's decreased cervical ROM globally but greatest in right lateral flexion and rotation. Thoracic ROM also severely limited. Palpation suggestive of C5 left rotation causing right sided impingement and inflammation. Pt will benefit from physical therapy to address alignment , ROM, mobility, posture and flexibility in order to return to PLOF and equip patient with tools to reduce likelihood of flare ups in the future . Plan of Care Interventions Electrical Stimulation,Hot Pack/Cold Pack,Manual Therapy,Neuro Re-education,Patient/Caregiver Educati,Therapeutic Activities,Therapeutic Exercise,Self-Care/Home Management,Ultrasound, Other Other Interventions [facility] PT Services Indicated Yes Treatment Frequency and 2x weekly x 5 weeks Duration These treatments will address the objective and functional deficits as defined above. The patient will be advanced safely and appropriately in order for the patient to progress towards his/her prior level of function. Additional exercises will be introduced and as well as a comprehensive home exercise program upon discharge, if needed, ?to ensure carryover of functional gains achieved in the clinic. This treatment plan has been reviewed and agreement upon by the patient.
--- NOTE | 2024-05-30 14:36 | OPREHPOC ---
Outpatient Therapy Plan of Care This is a Multidisciplinary Plan of Care that may contain components documented by all disciplines (PT, OT, and ST.) PT Problem 1 PT Problem #1 Knowledge Deficit PT Goal 1 Goal / Goal Update Pt will be independent in HEP Pt will verbalize understanding of diagnosis and prognosis Target Visit 5 PT Problem 2 PT Problem #2 Pain PT Goal 1 Goal / Goal Update Pt will report lowest pain rating at 0/10 to show improvement in overall discomfort Target Visit 5 PT Goal 2 Goal / Goal Update Pt will report resolution of pain to return to PLOF Target Visit 10 PT Problem 3 PT Problem #3 Impaired Range of Motion PT Goal 1 Goal / Goal Update Pt will demo 45 degrees cervical rotation inessa Target Visit 5 PT Goal 2 Goal / Goal Update Pt will demo 60 degrees or cervical rotation inessa Target Visit 10 PT Problem 4 PT Problem #4 Impaired Range of Motion PT Goal 1 Goal / Goal Update Pt will demo thoracic ROM lat flexion of 25% or greater Target Visit 10
--- NOTE | 2024-07-05 08:27 | PTOPPROG ---
Assessment and note entered by Kenisha Richardson, PT Progress Information Assessment Status Progress ICD-10 Condition Codes (PT) Cervicalgia M54.2 Other ICD-10 Condition Codes ( abnormal posture, stiffness cervical spine PT) Onset 4-6 weeks ago Subjective Information Pt reports feeling some relief with neck pain compared to when he first started therapy, however continues to feel the discomfort and stiffness when he turns head. Assessment PT Clinical Summary Pt received a total of 9 visits, demos gains and improvement in mobility, pain levels and posture. However, he has not completely met established goals and continues to feel tightness and discomfort to R occipital area with cervical rotation and lateral flexion, palpation to structures in the upper thoracic and bilat traps result to finding trigger points and increased tension. He will benefit from continued skilled PT to address remaining deficits and for education to improve carry over of proper body mechanics, proper ergonomics and lifting techniques when performing ADLs and IADLs, and improve QOL. Plan of Care Interventions Check Out for Orthotic/Pr,Electrical Stimulation, Hot Pack/Cold Pack,Manual Therapy,Mechanical Traction,Neuro Re-education,Patient/Caregiver Education,Therapeutic Activities,Therapeutic Exercise,Ultrasound,Other Other Interventions Taping, I[facility] PT Services Indicated Yes Treatment Frequency and 1-2x/wk x 8 visits Duration These treatments will address the objective and functional deficits as defined above. The patient will be advanced safely and appropriately in order for the patient to progress towards his/her prior level of function. Additional exercises will be introduced and as well as a comprehensive home exercise program upon discharge, if needed, ?to ensure carryover of functional gains achieved in the clinic. This treatment plan has been reviewed and agreement upon by the patient.
--- NOTE | 2024-07-05 08:30 | PTOPPROG ---
Assessment and note entered by Kenisha Richardson, PT Progress Information Assessment Status Progress ICD-10 Condition Codes (PT) Cervicalgia M54.2 Other ICD-10 Condition Codes ( abnormal posture, stiffness cervical spine PT) onset Late March 2024 Subjective Information Pt reports feeling some relief with neck pain compared to when he first started therapy, however continues to feel the discomfort and stiffness when he turns head. Assessment PT Clinical Summary Pt received a total of 9 visits, demos gains and improvement in mobility, pain levels and posture. However, he has not completely met established goals and continues to feel tightness and discomfort to R occipital area with cervical rotation and lateral flexion, palpation to structures in the upper thoracic and bilat traps result to finding trigger points and increased tension. He will benefit from continued skilled PT to address remaining deficits and for education to improve carry over of proper body mechanics, proper ergonomics and lifting techniques when performing ADLs and IADLs, and improve QOL. Plan of Care Interventions Check Out for Orthotic/Pr,Electrical Stimulation, Hot Pack/Cold Pack,Manual Therapy,Mechanical Traction,Neuro Re-education,Patient/Caregiver Educati,Therapeutic Activities,Therapeutic Exercise,Ultrasound,Other Other Interventions Taping, IASTM PT Services Indicated Yes Treatment Frequency and 1-2x/wk x 8 visits Duration These treatments will address the objective and functional deficits as defined above. The patient will be advanced safely and appropriately in order for the patient to progress towards his/her prior level of function. Additional exercises will be introduced and as well as a comprehensive home exercise program upon discharge, if needed, ?to ensure carryover of functional gains achieved in the clinic. This treatment plan has been reviewed and agreement upon by the patient.
--- NOTE | 2024-08-15 09:53 | PTOPDC ---
Assessment and note entered by Carolynn Boles, PT Evaluation Information Assessment Status Discharge ICD-10 Condition Codes (PT) Cervicalgia M54.2 Other ICD-10 Condition Codes ( abnormal posture, stiffness cervical spine PT) Onset 4-6 weeks ago Subjective Information Pt states feels better then when started. Can turn neck further without as much pain. Can turn enough now for driving. Self perceived improvement: 95% , Still has a little pain turning Pt reports doing exercises once or twice a week, but I'll start doing them more since he won't be coming to therapy Reported Pain Level Pain Score 0: Self Report Assessment PT Clinical Summary Pt has attended therapy consistently for his neck pain. Today he reports feeling 95% improved overall can turn further with less pain, and is no longer limited in turning for driving. He has not had complete resolution of pain but reports highest pain levels at 1/10. Pt cont to demo cervical and thoracic ROM deficits but is functional and pain-free with these tests. Pt has met most of his therapy goals, and is pleased with his progress. Thus pt is being discharged from [facility] for completion of program. Plan of Care PT Services Indicated No
== END 2024-08-16 09:23 | disposition home or self-care (01) ==
LOC: ANHHIPT 09:00
PROVIDERS: PCP Nurse Practitioner Family; Visit Provider Nurse Practitioner Family
DX: M54.2 Cervicalgia (principal)
CPT/HCPCS: 97012; 97014; 97032; 97035; 97110; 97140; 97161; 97750; G0283

== ENCOUNTER 2025-04-23 08:00 | Outpatient (RCR) | payer MEDICARE, OTHER, SELFPAY ==
--- NOTE | 2025-02-10 16:43 | PTOPEVAL1 ---
Assessment and note entered by Carolynn Boles, PT Evaluation Information Assessment Status Evaluation Diagnosis low back pain unspecified ICD-10 Condition Codes (PT) Pain in low back M54.50,Weakness R53.1 Onset 2-3 weeks Subjective Information Pt reports was debatable coming in as the pain comes and goes. The medications has been on is helping. Images show degenerative changes in L4-S1 . Once in a while is challenging getting out of recliner. Pain started 2-3 weeks ago. No traumatic event, nothing out of the ordinary Pt reports pain never kept him from doing anything Reported Pain Level Pain Score 4: Self Report Assessment PT Clinical Summary Pt presents with complaints of back pain that started about 2-3 weeks ago without known incident . Pt demonstrates scoliotic curvature, pelvic upslip, decreased lumbopelvic strength, and decreased flexibility of the quads and hamstrings. 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 Pt will benefit from physical therapy to address deficits and improve pain to reduce likelihood of reinjury and flare up in the future. Plan of Care Interventions Check Out for Orthotic/Prosthetic,Electrical Stimulation,Gait Training,Hot Pack/Cold Pack, Manual Therapy,Mechanical Traction,Neuro Re- education,Patient/Caregiver Education,Therapeutic Activities,Therapeutic Exercise,Self-Care/Home Management,Ultrasound,Other Other Interventions taping, bracing PT Services Indicated Yes Treatment Frequency and 1-2x weekly x 10 visits Duration These treatments will address the objective and functional deficits as defined above. The patient will be advanced safely and appropriately in order for the patient to progress towards his/her prior level of function. Additional exercises will be introduced and as well as a comprehensive home exercise program upon discharge, if needed, ?to ensure carryover of functional gains achieved in the clinic. This treatment plan has been reviewed and agreement upon by the patient.
--- NOTE | 2025-02-10 16:43 | OPREHPOC ---
Outpatient Therapy Plan of Care This is a Multidisciplinary Plan of Care that may contain components documented by all disciplines (PT, OT, and ST.) PT Problem 1 PT Problem #1 Knowledge Deficit PT Goal 1 Goal / Goal Update Pt will be independent in HEP Pt will verbalize understanding of diagnosis and prognosis Target Visit 5 PT Problem 2 PT Problem #2 Pain PT Goal 1 Goal / Goal Update Pt will report greatest pain level at 3/10 or less to improve ADLs and activities Target Visit 5 PT Goal 2 Goal / Goal Update Pt will report resolution of pain to return to PLOF Target Visit 10 PT Problem 3 PT Problem #3 Impaired Strength PT Goal 1 Goal / Goal Update Pt will demonstrates lumbopelvic strength of 4/5 or greater for improved back support Target Visit 10 PT Problem 4 PT Problem #4 Impaired Flexibility PT Goal 1 Goal / Goal Update Pt will demonstrate hamstring flexibility from 90/ 90 position increase to 60 degrees to offload lumbar spine Target Visit 5
--- NOTE | 2025-03-18 14:58 | PTOPPROG ---
Assessment and note entered by Carolynn Boles, PT Evaluation Information Assessment Status Progress Diagnosis low back pain unspecified ICD-10 Condition Codes (PT) Pain in low back M54.50,Weakness R53.1 Onset 2-3 weeks Subjective Information Self Perceived improvement : over half No longer requiring medications Is able to bend down better. 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 Pain appeared sacroiliac and pelvic alignment issues causing traveling lumbar and groin pain. Pt reports feeling about 50% better overall, shows improved lumbar ROM with less pain, improved quads flexibility, and reports is better able to bend and lift RLE without pain. Pt does continue to have back pain and groin pain intermittently up to 5/10 at worst situations. Pt will benefit from continued therapy to continue progress and meet his goals of function without pain. Plan of Care Interventions Check Out for Orthotic/Prosthetic,Electrical Stimulation,Gait Training,Hot Pack/Cold Pack, Manual Therapy,Mechanical Traction,Neuro Re- education,Patient/Caregiver Education,Therapeutic Activities,Therapeutic Exercise,Self-Care/Home Management,Ultrasound,Other Other Interventions taping, bracing PT Services Indicated Yes Treatment Frequency and 1-2x weekly x 10 visits Duration These treatments will address the objective and functional deficits as defined above. The patient will be advanced safely and appropriately in order for the patient to progress towards his/her prior level of function. Additional exercises will be introduced and as well as a comprehensive home exercise program upon discharge, if needed, ?to ensure carryover of functional gains achieved in the clinic. This treatment plan has been reviewed and agreement upon by the patient.
--- NOTE | 2025-04-23 14:58 | PTOPDC ---
Assessment and note entered by Carolynn Boles, PT Evaluation Information Assessment Status Discharge Diagnosis low back pain unspecified ICD-10 Condition Codes (PT) Pain in low back M54.50,Weakness R53.1 Onset 2-3 weeks Subjective Information Back is doing good, but now right side of neck bothersome. Noticed on Monday, Monday started using ice. Self-perceived improvement : 90% better Pt reports is trying to sit with tailbone back in chair but doesn't sit that much. 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 Today he demonstrates appropriately aligned pelvis, mild pain in central spine related to arthritis, mildly improved strength of lumbopelvic stabilizers. Pt is happy with his progress as his pain has decreased significantly. Reviewed HEP for lumbar health maintenance, and lifting mechanics to prevent future injury. Pt has completed his therapy plan and will thus be discharged. Plan of Care PT Services Indicated No
== END 2025-04-24 08:04 | disposition home or self-care (01) ==
LOC: ANHHIPT 08:00
PROVIDERS: PCP Nurse Practitioner Family; Visit Provider Nurse Practitioner Family
DX: M54.50 Low back pain, unspecified (principal)
CPT/HCPCS: 97014; 97110; 97140; 97161; 97530; 97750; G0283